=== PATIENT | female | born 1960 | race Caucasian/White ===

== ENCOUNTER → 2018-04-10 16:49 | Outpatient (CLI) | payer OTHER, SELFPAY ==
[2018-04-10 18:18] LABS: AST(SGOT) 23 U/L (15-37); Alanine Aminotransfer ALT/SGPT 27 U/L (13-56); Anion Gap 11 (5-15); BUN 19 mg/dL (7-18); BUN/Creat Ratio 13.5 RATIO (10-20); Calcium,Total 8.9 mg/dL (8.5-10.1); Chloride 107 mmol/L (98-107); Cholesterol 140 mg/dL (200); Creatinine, Serum 1.41 mg/dL (0.55-1.02); EST Glomerular Filtration Rate 41 mL/min (>60); Est Glom Filt Rate - Afr Amer 49 mL/min (>60); Glucose 125 mg/dL (74-106); High Density Lipoprotein 52 mg/dL; Potassium 3.7 mmol/L (3.5-5.1); Sodium Level 144 mmol/L (136-145); Thyroid Stim Hormone (TSH) 3.23 uIU/mL (0.358-3.74); Triglycerides 216 mg/dL; Very Low Density Lipoprotein 43 mg/dL (5-40)
== END ==
PROVIDERS: Family Provider Family Medicine; PCP Family Medicine; Visit Provider Family Medicine
DX: I10 Essential (primary) hypertension (principal); E78.00 Pure hypercholesterolemia, unspecified; R63.5 Abnormal weight gain
CPT/HCPCS: 36415; 80048; 80061; 84443; 84450; 84460

== ENCOUNTER → 2018-05-01 12:56 | Outpatient (CLI) | payer OTHER, SELFPAY ==
[2018-05-01 14:36] LABS: Anion Gap 9 (5-15); BUN 23 mg/dL (7-18); BUN/Creat Ratio 15.5 RATIO (10-20); Calcium,Total 9.1 mg/dL (8.5-10.1); Chloride 107 mmol/L (98-107); Creatinine, Serum 1.48 mg/dL (0.55-1.02); EST Glomerular Filtration Rate 39 mL/min (>60); Est Glom Filt Rate - Afr Amer 47 mL/min (>60); Glucose 70 mg/dL (74-106); Potassium 4.6 mmol/L (3.5-5.1); Sodium Level 143 mmol/L (136-145)
[2018-05-01 14:37] LABS: Hemoglobin A1c 5.9 % (4.2-6.3)
== END ==
PROVIDERS: Family Provider Family Medicine; PCP Family Medicine; Referring Provider Family Medicine; Visit Provider Family Medicine
DX: I10 Essential (primary) hypertension (principal); R73.09 Other abnormal glucose
CPT/HCPCS: 36415; 80048; 83036

== ENCOUNTER → 2018-07-09 16:30 | Outpatient (CLI) | payer OTHER, SELFPAY ==
--- NOTE | 2018-07-09 16:32 | US_ITS ---
STUDY: RENAL ULTRASOUND - COMPLETE REASON FOR EXAM: Female, 57 years old. Chronic kidney disease TECHNIQUE: Ultrasound evaluation of the kidneys was performed with real-time and static osborn-scale imaging. COMPARISON: None. FINDINGS: RIGHT KIDNEY: Normal location of the right kidney, which is normal in size. The right kidney measures 10.4 x 4.5 x 4.4 cm. There is a normal cortex of the right kidney. The renal cortex measures 1.7 cm. There is no right renal mass or cyst. There are no right renal calculi. There is no right hydronephrosis. DISTAL RIGHT URETER: There is non-visualization of the distal right ureter. There is no demonstrated right ureterovesical junction calculus. There is no demonstrated right ureteral jet. LEFT KIDNEY: Normal location of the left kidney, which is normal in size. The left kidney measures 11.0 x 5.1 x 4.7 cm. There is a normal cortex of the left kidney. The renal cortex measures cm. There is no left renal mass or cyst. There are no left renal calculi. There is no left hydronephrosis. DISTAL LEFT URETER: There is non-visualization of the distal left ureter. There is no demonstrated left ureterovesical junction calculus. There is no demonstrated left ureteral jet. BLADDER: The distended urinary bladder has a volume of 7 ml. There is a normal wall thickness of the distended urinary bladder. There is no demonstrated mass within the urinary bladder. There are no demonstrated bladder calculi. US/Kidney and Bladder IMPRESSION: Normal ultrasound of the kidneys and urinary bladder. Electronically Signed: David Kaur MD at 2:26 EST Tel , Service support ,
== END ==
PROVIDERS: Family Provider Family Medicine; PCP Family Medicine; Referring Provider Internal Medicine Nephrology; Visit Provider Internal Medicine Nephrology
DX: N18.3 Chronic kidney disease, stage 3 (moderate) (principal)
CPT/HCPCS: 76770

== ENCOUNTER → 2019-04-11 14:05 | Outpatient (CLI) | payer OTHER, SELFPAY ==
[2019-04-11 15:57] LABS: AST(SGOT) 18 U/L (15-37); Alanine Aminotransfer ALT/SGPT 28 U/L (13-56); Albumin, Serum 3.9 g/dL (3.2-5.0); Anion Gap 9 (5-15); BUN 17 mg/dL (7-18); BUN/Creat Ratio 14.4 RATIO (10-20); Calcium,Total 8.8 mg/dL (8.5-10.1); Chloride 105 mmol/L (98-107); Cholesterol 179 mg/dL (200); Creatinine, Serum 1.18 mg/dL (0.55-1.02); EST Glomerular Filtration Rate 50 mL/min (>60); Est Glom Filt Rate - Afr Amer 60 mL/min (>60); Glucose 77 mg/dL (74-106); High Density Lipoprotein 57 mg/dL; Phosphorus 2.9 mg/dL (2.5-4.9); Potassium 3.9 mmol/L (3.5-5.1); Sodium Level 142 mmol/L (136-145); Triglycerides 165 mg/dL; Very Low Density Lipoprotein 33 mg/dL (5-40)
== END ==
PROVIDERS: Family Provider Family Medicine; PCP Family Medicine; Referring Provider Internal Medicine Nephrology; Visit Provider Internal Medicine Nephrology
DX: I12.9 Hypertensive chronic kidney disease with stage 1 through stage 4 chronic kidney disease, or unspecified chronic kidney disease (principal); N18.3 Chronic kidney disease, stage 3 (moderate); E78.00 Pure hypercholesterolemia, unspecified
CPT/HCPCS: 36415; 80048; 80061; 82040; 84100; 84450; 84460

== ENCOUNTER → 2019-04-17 10:02 | Outpatient (CLI) | payer OTHER, SELFPAY ==
--- NOTE | 2019-04-17 10:04 | BI_ITS ---
MAMMOGRAPHY - BILATERAL SCREENING REASON FOR EXAM: Female, 58 years old. Routine annual screening examination. PERTINENT HISTORY: Non-contributory. TECHNIQUE: Digital bilateral breast bradly (3D mammographic acquisition) in the CC and MLO projections. 2-D mediolateral oblique (MLO) and craniocaudad (CC) views of both breasts were obtained. CAD: Full Field Digital Mammography with Computer Added Detection was performed. COMPARISON: Comparison is made with prior outside examination dated February 15, 2007. FINDINGS: Breast Composition: The breasts are almost entirely fatty. There are no dominant masses or suspicious calcifications. No other significant abnormalities are identified. There has been no significant change since the prior study. BI/SCREEN MAMM (CAD) W/BRADLY BILAT IMPRESSION: Stable bilateral screening mammogram. Yearly follow-up mammogram recommended. (A) ASSESSMENT CATEGORY: BIRADS Category 1: Negative. A letter regarding these results will be sent to the patient by the facility within 30 days. Approximately 10% of breast cancers are not detected by mammography. A normal mammogram should not delay biopsy of a clinically suspicious abnormality. [id number] Electronically Signed: Ronaldo Mccarthy, at 12:36 EST , Service support ,
== END ==
PROVIDERS: Family Provider Family Medicine; PCP Family Medicine; Referring Provider Family Medicine; Visit Provider Family Medicine
DX: Z12.31 Encounter for screening mammogram for malignant neoplasm of breast (principal)
CPT/HCPCS: 77063; 77067

== ENCOUNTER → 2019-08-08 14:09 | Outpatient (CLI) | payer OTHER, SELFPAY ==
[2019-08-08 14:04] VITALS: BMI 36.0
--- NOTE | 2019-08-08 14:10 | RAD_ITS ---
STUDY: X-RAY - RIGHT SHOULDER REASON FOR EXAM: Chronic pain. TECHNIQUE: 3 view(s) of the shoulder. COMPARISON: None. FINDINGS: There is mild joint space narrowing of the glenohumeral articulation. There is resection of the distal clavicle. Normal acromion. Normal humeral head and visualized proximal humerus. The soft tissue structures are unremarkable. Normal visualized pulmonary apex. RAD/Shoulder min 2 Views IMPRESSION: Mild glenohumeral arthrosis. Electronically Signed: Michael Jennings MD at 15:23 EST Tel , Service support ,
== END ==
PROVIDERS: PCP Family Medicine; Referring Provider Orthopaedic Surgery; Visit Provider Orthopaedic Surgery
DX: M25.511 Pain in right shoulder (principal)
CPT/HCPCS: 73030

== ENCOUNTER → 2020-04-13 11:25 | Outpatient (CLI) | payer OTHER, SELFPAY ==
[2019-08-08 14:28] VITALS: BMI 37.8
[2020-04-13 15:54] LABS: BUN 19 mg/dL (7-18); BUN/Creat Ratio 15.7 RATIO (10-20); Chloride 103 mmol/L (98-107); Creatinine, Serum 1.21 mg/dL (0.55-1.02); EST Glomerular Filtration Rate 48 mL/min (>60); Est Glom Filt Rate - Afr Amer 58 mL/min (>60); Glucose 88 mg/dL (74-106); Phosphorus 3.4 mg/dL (2.5-4.9); Sodium Level 140 mmol/L (136-145)
== END ==
PROVIDERS: PCP Family Medicine; Referring Provider Internal Medicine Nephrology; Visit Provider Internal Medicine Nephrology
DX: N18.30 Chronic kidney disease, stage 3 unspecified (principal)
CPT/HCPCS: 36415; 80069

== ENCOUNTER → 2020-04-20 13:55 | Outpatient (CLI) | payer OTHER, SELFPAY ==
[2019-08-08 14:28] VITALS: BMI 37.8
[2020-04-20 16:11] LABS: AST(SGOT) 13 U/L (15-37); Alanine Aminotransfer ALT/SGPT 24 U/L (13-56); Cholesterol 177 mg/dL (200); High Density Lipoprotein 58 mg/dL; Triglycerides 187 mg/dL; Very Low Density Lipoprotein 37 mg/dL (5-40)
== END ==
PROVIDERS: PCP Family Medicine; Referring Provider Family Medicine; Visit Provider Family Medicine
DX: E78.00 Pure hypercholesterolemia, unspecified (principal)
CPT/HCPCS: 36415; 80061; 84450; 84460

== ENCOUNTER → 2020-05-01 15:52 | Outpatient (CLI) | payer OTHER, SELFPAY ==
[2019-08-08 14:28] VITALS: BMI 37.8
== END ==
PROVIDERS: PCP Family Medicine; Visit Provider Family Medicine
DX: Z20.828 Contact with and (suspected) exposure to other viral communicable diseases (principal)
CPT/HCPCS: 87635; U0003

== ENCOUNTER 2020-08-25 11:14 | Outpatient (RCR) | payer OTHER, SELFPAY ==
[2020-08-25] MEDS: COVID-19 VACC, MRNA(PFIZER)/PF 30 MCG/0.3 ML SYRINGE IM (11:00)
[2020-09-15] MEDS: COVID-19 VACC, MRNA(PFIZER)/PF 30 MCG/0.3 ML SYRINGE IM (10:51)
== END 2020-11-17 23:59 ==
LOC: IMMUN 11:14
PROVIDERS: PCP Family Medicine; Visit Provider Family Medicine
DX: Z23 Encounter for immunization (principal)
CPT/HCPCS: 0001A; 0002A; 91300

== ENCOUNTER → 2020-12-01 12:36 | Outpatient (CLI) | payer OTHER, SELFPAY ==
--- NOTE | 2020-12-01 12:38 | BI_ITS ---
MAMMOGRAPHY - BILATERAL SCREENING 3-D TOMOSYNTHESIS REASON FOR EXAM: Female, 59 years old. Annual screening mammogram. PERTINENT HISTORY: No significant family history. TECHNIQUE: 2-D mammograms and 3-D Tomosynthesis of the breast (s) were performed. CAD was performed. COMPARISON: 04/17/2019 FINDINGS: The breast composition is almost entirely fat. Scattered benign calcifications are seen. No dense spiculated masses or suspicious microcalcifications are identified. No architectural distortion is identified. There is no skin thickening or retraction. There has been no significant change since the prior study. BI/SCRN MAMM (CAD)W/BRADLY BILAT IMPRESSION: No mammographic signs of malignancy. Routine yearly mammograms recommended. ASSESSMENT CATEGORY: BIRADS Category 2: Benign. A letter regarding these results will be sent to the patient by the facility within 30 days. FOLLOW UP RECOMMENDATION: Yearly follow up mammogram recommended. (A) Approximately 10% of breast cancers are not detected by mammography. A normal mammogram should not delay biopsy of a clinically suspicious abnormality. Electronically Signed: Julio Viramontes MD at 14:53 EDT , Service support ,
--- NOTE | 2020-12-01 13:05 | BD_ITS ---
STUDY: DUAL ENERGY X-RAY ABSORPTIOMETRY / DXA REASON FOR EXAM: Female, 59 years old. [id number]. The patient is postmenopausal. TECHNIQUE: Bone Mineral Density (BMD) measurements of lumbar spine and bilateral hips were obtained. COMPARISON: None. FINDINGS: Lumbar Spine (L1-L4): g/cm2 (1.391) / T-score (1.9) / Z-score (3.1) Findings are suggestive of normal bone density with a low fracture risk. Left Femur Total: g/cm2 (1.074) / T-score (0.5) / Z-score (1.5) Left Femoral Neck: g/cm2 (0.885) / T-score (-1.1) / Z-score (0.2) Right Femur Total: g/cm2 (0.894) / T-score (-0.9) / Z-score (0.1) Right Femoral Neck: g/cm2 (0.841) / T-score (-1.4) / Z-score (-0.1) BD/Dexa Bone Density Study IMPRESSION: The patient is considered osteopenic as outlined below according to World [employer]rin[employer] Organization (WHO) criteria with a low fracture risk. Reference Information: The T-score is the number of standard deviations above or below the standard which is normal for young adults at their peak bone mineral density. The World Health Organization (WHO) interprets the T-scores as follows: Above -1 Normal bone density Between -1 and -2.5 Osteopenia Equal to / or below -2.5 Osteoporosis As a practical clinical guideline, osteopenia may be graded as follows: Mild -1 through -1.5 Moderate -1.6 through -2.0 Severe -2.1 through -2.4 The Z-score is the number of standard deviations above or below age-matched controls. A Z-score of less than -1.5 would be considered abnormal. References: 1. NIH Osteoporosis and Related Bone Diseases www osteo.org 2. International Society for Clinical Densitometry www iscd.org 3. National Osteoporosis Foundation www nof.org Electronically Signed: Ronaldo Mccarthy MD at 8:28 EDT , Service support ,
== END ==
PROVIDERS: PCP Family Medicine; Referring Provider Family Medicine; Visit Provider Family Medicine
DX: Z78.0 Asymptomatic menopausal state (principal); Z12.31 Encounter for screening mammogram for malignant neoplasm of breast
CPT/HCPCS: 77063; 77067; 77080

== ENCOUNTER 2021-05-03 10:39 | Outpatient (RCR) | payer BC, OTHER, SELFPAY ==
--- NOTE | 2021-05-03 12:08 | HP.PTEVAL_ITS ---
Patient's Visit Information HEATHER DAVIS is a 60 year old F referred to Physical Therapy by Dr. Luda Erickson MD with a diagnosis of lumbar strain. Date of Evaluation: 05/03/21 Physical Therapist: Otilia Rapp - Visit Plan Frequency: 1x/Week Duration: 4 Weeks Plan: 1. Gave pt HEP with low back stretches and bridging exercise. Begin POC with stretching/strengthening for low back and progressive core stabilazation program. Pt to try TENS unit at work to see if that helps her pain during her shift. Consider pool therapy if not progressing. 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 Began job the end of March. She reports that she has been having problems with her back before that but since starting this new job the pain has gotten significantly worse as her job is busy and fast paced. Pt works 12 hr night shifts. Received a cortisone shot 2 wks ago that worked for about 2 days. Pt has not tried ice or heat. Pt reports she tried a back brace but it did not help much. Sitting does not cause her pain, but the transition to stand up is painful and difficult. Pt reports radiating pain down the left leg occasionally and a sharp pain in the lower back with too quickly of movements. Pt willing to try physical therapy but only has time for one day a week, though script mentioned 2x/wk. Encouraged pt to give it a try, but that she must be compliant with HEP at home to notice a difference. PAIN: 0/10, currently in sitting. Walking and activity increases the pain to up to 10/10. - Pain low back Pain Intensity (Out of 10): 0 Pain Intensity Range: 0, 10 - Objective ROM: trunk flexion (fingertips 2 inches from ankles), minimal extension (painful), minimal L sidebend with increased pain, R sidebend fingertips ~3 inches down lateral thigh, L rotation more painful than R (minimal both directions). LE ROM: WFL, lacking about 15 degrees bilaterally with SLR. MMT: B hip flexion 5/5 (slight back pain with resistance on left), B abd 5/5, B extension, adduction 4/5, core strength fair. PALPATION: tenderness to B paraspinals in lumbar area. GAIT: no abnormalities noted; however pt reports that with prolonged increased activity, gait causes back pain. - Balance/Special Test Scores Oswestry Low Back Score: 21 - Goals Goal 1:: Pt to be I with HEP Goal Time Frame: 2-4 Weeks Goal 2:: Pt to report decreased pain during work shift <3/10 allowing for increased participation. Goal Time Frame: 4-6 Weeks Goal 3:: Pt to decrease MARGARITA disability percentage to <10%. Goal Time Frame: 4-6 Weeks - Rehabilitation Potential Physical Therapy Diagnosis: Pt presents with s/s consistent with lumbar strain resulting in back pain leading to difficulty completing work tasks and other ADLs. Rehabilitation Potential: Good - Anticipated Interventions Patient/Client Instruction: Educate patient on: Condition, Plan of Care, Benefits of Fitness Program Therapeutic Exercise to Include: Strength training, Body mechanics, Postural t raining, Dynamic Lumbar Stabilization For the Purpose of:: To improve ability to perform ADL's, To increase flexibility/ROM Manual Therapy Techniques to Include: Soft tissue mobilization TENS: Yes IF ES: Yes Cryotherapy (ice pack, ice massage): Yes Ultrasound (thermal/non thermal): Yes For the Purpose of:: To decrease pain Thank you for the opportunity to evaluate your patient. For Medicare and Medicare HMO plans, please review the plan of care and approve it. It will need to be FAXED BACK to us at [phone] for Medicare purposes. For Medicare only, by signing this I certify the plan of care. Please let me know if there are questions or concerns regarding this plan of care. Physician Signature: Date:
--- NOTE | 2021-06-28 09:39 | HP.PT.NRP ---
HEATHER DAVIS was seen in my office for initial evaluation on 05/03/21. The following Plan of Care was established for this patient: Initial Frequency: 1x/Week Initial Duration: 4 Weeks Patient/Client Instruction: Educate patient on: Condition, Plan of Care, Benefits of Fitness Program Therapeutic Exercise to Include: Strength training, Body mechanics, Postural training, Dynamic Lumbar Stabilization For the Purpose of:: To improve ability to perform ADL's, To increase flexibility/ROM Manual Therapy Techniques to Include: Soft tissue mobilization TENS: Yes IF ES: Yes Cryotherapy (ice pack, ice massage): Yes Ultrasound (thermal/non thermal): Yes For the Purpose of:: To decrease pain This patient was last seen in our office 05/03/21. Pertinent comments regarding their Physical therapy will appear below: Pt seen one visit of HEP instruct. Was to f/u weekly for progression but did not schedule or attend any further visits. at this point, it has been nearly two months and I will discontinue due to nonattendance. At this point I will be discontinuing this patient from physical therapy. I would be happy to see this patient again in the future if found appropriate by the physician. Thank you! Maykel Dietrich, DPT, OCS, CSCS Balance/Gait/Functional tests - Balance/Special Test Scores Oswestry Low Back Score: 21
== END 2021-05-03 19:00 | disposition home or self-care (01) ==
LOC: PT 10:39
PROVIDERS: PCP Family Medicine; Referring Provider Family Medicine; Visit Provider Family Medicine
DX: S39.012D Strain of muscle, fascia and tendon of lower back, subsequent encounter (principal)
CPT/HCPCS: 97161

== ENCOUNTER 2021-09-27 14:10 | Outpatient (CLI) | payer BC, OTHER, SELFPAY ==
[2021-09-27 18:00] LABS: AST(SGOT) 20 U/L (15-37); Alanine Aminotransfer ALT/SGPT 30 U/L (13-56); Anion Gap 6 (5-15); BUN 13 mg/dL (7-18); BUN/Creat Ratio 11.3 RATIO (10-20); Chloride 105 mmol/L (98-107); Cholesterol 190 mg/dL (200); Creatinine, Serum 1.15 mg/dL (0.55-1.02); EST Glomerular Filtration Rate 51 mL/min (>60); Est Glom Filt Rate - Afr Amer 62 mL/min (>60); Glucose 102 mg/dL (74-106); High Density Lipoprotein 57 mg/dL; Potassium 4.1 mmol/L (3.5-5.1); Sodium Level 141 mmol/L (136-145); Triglycerides 313 mg/dL; Very Low Density Lipoprotein 63 mg/dL (5-40)
== END 2021-09-27 23:59 | disposition home or self-care (01) ==
LOC: MFPLAB 14:12
PROVIDERS: PCP Family Medicine; Visit Provider Family Medicine
DX: E78.00 Pure hypercholesterolemia, unspecified (principal); I10 Essential (primary) hypertension
CPT/HCPCS: 36415; 80048; 80061; 84450; 84460

== ENCOUNTER → 2022-07-05 | Outpatient (CLI) | payer BC, SELFPAY ==
[2022-07-05 18:55] LABS: AST(SGOT) 15 U/L (15-37); Alanine Aminotransfer ALT/SGPT 22 U/L (13-56); Anion Gap 6 (5-15); BUN 11 mg/dL (7-18); BUN/Creat Ratio 10.8 RATIO (10-20); Calcium,Total 8.7 mg/dL (8.5-10.1); Chloride 104 mmol/L (98-107); Cholesterol 176 mg/dL (200); Creatinine, Serum 1.02 mg/dL (0.55-1.02); EST Glomerular Filtration Rate 58 mL/min (>60); Est Glom Filt Rate - Afr Amer 71 mL/min (>60); Glucose 120 mg/dL (74-106); High Density Lipoprotein 59 mg/dL; Potassium 3.8 mmol/L (3.5-5.1); Sodium Level 139 mmol/L (136-145); Triglycerides 211 mg/dL; Very Low Density Lipoprotein 42 mg/dL (5-40)
== END | disposition home or self-care (01) ==
LOC: MFPLAB 15:58
PROVIDERS: PCP Family Medicine; Referring Provider Family Medicine; Visit Provider Family Medicine
DX: I10 Essential (primary) hypertension (principal); E78.00 Pure hypercholesterolemia, unspecified
CPT/HCPCS: 36415; 80048; 80061; 84450; 84460

== ENCOUNTER 2023-01-03 15:39 | Outpatient (CLI) | payer OTHER, SELFPAY ==
[2023-01-03 18:00] LABS: Absolute Lymphocyte Count 1.69 X10^3/uL (0.83-4.51); Absolute Neutrophil Count 2.9 X10^3/uL (2.0-7.7); Basophil# 0.04 X10^3/uL; Basophil% 0.7 % (0-1); Eosinophil# 0.14 X10^3/uL; Eosinophils% 2.5 % (0-5); Hematocrit 39.6 % (37-47); Hemoglobin 12.2 g/dL (12.0-15.0); Lymphocyte # 1.69 X10^3/ul (0.83-4.51); Lymphocyte % 30.7 % (19-41); Mean Corp Hgb Conc 30.8 g/dL (32-36); Mean Corpuscular Hgb 30.2 pg (27.0-32.0); Mean Platelet Vol. 12.4 fl (6.2-12.0); Monocyte% 10.9 % (0-10); NRBC Flagged by Analyzer 0 % (0-5); Neutrophil # 2.94 X10^3/uL (2.7-7.7); Neutrophil % 53.6 % (47-70); Platelet Count 210 K/mm3 (150-450); RBC Distribution Width CV 13.5 % (11.6-14.6); RBC Distribution Width SD 49.2 fl (35.1-43.9); Red Blood Count 4.04 M/mm3 (4.2-5.4); White Blood Count 5.5 K/mm3 (4.4-11.0)
[2023-01-03 18:38] LABS: ALB/GLOB Ratio 1.2 RATIO (0.9-2.4); AST(SGOT) 21 U/L (15-37); Alanine Aminotransfer ALT/SGPT 27 U/L (13-56); Albumin, Serum 3.9 g/dL (3.2-5.0); Alkaline Phosphatase 72 U/L (45-117); Anion Gap 4 (5-15); BUN 18 mg/dL (7-18); BUN/Creat Ratio 15.4 RATIO (10-20); Calcium,Total 9.4 mg/dL (8.5-10.1); Chloride 108 mmol/L (98-107); Cholesterol 168 mg/dL (200); Creatinine, Serum 1.17 mg/dL (0.55-1.02); EST Glomerular Filtration Rate 50 mL/min (>60); Est Glom Filt Rate - Afr Amer 60 mL/min (>60); Globulin 3.2 g/dL (2.2-4.2); Glucose 81 mg/dL (74-106); High Density Lipoprotein 63 mg/dL; Potassium 4.3 mmol/L (3.5-5.1); Protein, Total 7.1 g/dL (6.4-8.2); Sodium Level 141 mmol/L (136-145); Triglycerides 221 mg/dL; Very Low Density Lipoprotein 44 mg/dL (5-40)
== END 2023-01-03 23:59 | disposition home or self-care (01) ==
LOC: MFPLAB 15:40
PROVIDERS: PCP Family Medicine; Visit Provider Family Medicine
DX: Z00.00 Encounter for general adult medical examination without abnormal findings (principal); N18.30 Chronic kidney disease, stage 3 unspecified
CPT/HCPCS: 36415; 80053; 80061; 85025

== ENCOUNTER → 2024-01-08 | Outpatient (CLI) | payer SELFPAY ==
[2024-01-08 18:01] LABS: Anion Gap 5 (5-15); BUN 16 mg/dL (7-18); BUN/Creat Ratio 14.4 RATIO (10-20); Calcium,Total 9.4 mg/dL (8.5-10.1); Chloride 107 mmol/L (98-107); Cholesterol 166 mg/dL (200); Creatinine, Serum 1.11 mg/dL (0.55-1.02); EST Glomerular Filtration Rate 53 mL/min (>60); Est Glom Filt Rate - Afr Amer 64 mL/min (>60); Glucose 96 mg/dL (74-106); High Density Lipoprotein 65 mg/dL; Potassium 3.9 mmol/L (3.5-5.1); Sodium Level 137 mmol/L (136-145); Triglycerides 149 mg/dL; Very Low Density Lipoprotein 30 mg/dL (5-40)
== END | disposition home or self-care (01) ==
PROVIDERS: PCP Family Medicine; Visit Provider Family Medicine
DX: I10 Essential (primary) hypertension (principal); E78.00 Pure hypercholesterolemia, unspecified
CPT/HCPCS: 36415; 80048; 80061

== ENCOUNTER → 2024-01-12 | Outpatient (CLI) | payer SELFPAY ==
--- NOTE | 2024-01-12 12:28 | BI_ITS ---
MAMMOGRAPHY - BILATERAL SCREENING REASON FOR EXAM: Female, 63 years old. Routine annual screening examination. PERTINENT HISTORY: Non-contributory. TECHNIQUE: Digital bilateral breast bradly (3D mammographic acquisition) in the CC and MLO projections. 2-D mediolateral oblique (MLO) and craniocaudad (CC) views of both breasts were obtained. CAD: Full Field Digital Mammography with Computer Added Detection was performed. COMPARISON: Comparison is made with prior study dated December 01, 2020 and April 17, 2019. FINDINGS: Breast Composition: The breasts are almost entirely fatty. There are no dominant masses or suspicious calcifications. No other significant abnormalities are identified. There has been no significant change since the prior study. BI/SCRN MAMM (CAD)W/BRADLY BILAT IMPRESSION: Stable bilateral screening mammogram. Yearly follow-up mammogram recommended. (A) ASSESSMENT CATEGORY: BIRADS Category 1: Negative. A letter regarding these results will be sent to the patient by the facility within 30 days. Approximately 10% of breast cancers are not detected by mammography. A normal mammogram should not delay biopsy of a clinically suspicious abnormality. [id number] Electronically Signed: Ronaldo Mccarthy MD at 12:56 EDT ,
== END | disposition home or self-care (01) ==
PROVIDERS: PCP Family Medicine; Referring Provider Family Medicine; Visit Provider Family Medicine
DX: Z12.31 Encounter for screening mammogram for malignant neoplasm of breast (principal)
CPT/HCPCS: 77063; 77067

== ENCOUNTER → 2025-04-24 | Outpatient (CLI) | payer MEDICARE, OTHER, SELFPAY ==
[2025-04-24 15:08] LABS: Mucous, Urine 0 SEEN /hpf (<or=2+); Red Blood Cells-Urine 0 SEEN /hpf (0-5)
[2025-04-24 18:03] LABS: Color, Urine Yellow (Yellow); Glucose, Dipstick Normal (Normal); Hematocrit 40.6 % (37-47); Hemoglobin 13.4 g/dL (12.0-15.0); Immature Granulocytes Count 0.010 X10^3/uL (0.0-0.0); Ketone-Dipstick Negative (Negative); Leukocyte Esterase-Dipstick Negative /ul (Negative); Mean Corp Hgb Conc 33.0 g/dL (32-36); Mean Corpuscular Volume 97.6 fL (81-99); Mean Platelet Vol. 11.7 fl (6.2-12.0); NRBC Flagged by Analyzer 0 % (0-5); Nitrite-Dipstick Negative (Negative); Occult Blood-Urine Negative /ul (Negative); Platelet Count 251 K/mm3 (150-450); Protein-Dipstick 30 mg/dl (Negative); RBC Distribution Width CV 12.2 % (11.6-14.6); RBC Distribution Width SD 44.0 fl (35.1-43.9); Red Blood Count 4.16 M/mm3 (4.2-5.4); Specific Gravity, Urine 1.015 (1.002-1.030); Urine Bilirubin Dipstick Negative (Negative); White Blood Count 6.2 K/mm3 (4.4-11.0)
[2025-04-24 18:12] LABS: Squamous Epithelial Cells - UA 0-5 SEEN /hpf (5-10)
[2025-04-24 18:22] LABS: Creatinine, Urine (random) 89.70 mg/dL (28.00-217.00); Protein, Urine (Random) 8.8 mg/dL (0.0-12.0); Protein:Creat Ratio 98 mg/g CRE (0-200)
[2025-04-24 18:32] LABS: PTHIN 47 pg/mL (11-61)
[2025-04-24 18:42] LABS: AST(SGOT) 23 U/L (<=31); Alanine Aminotransfer ALT/SGPT 12 U/L (<=34); Albumin, Serum 4.0 g/dL (3.4-4.8); Alkaline Phosphatase 63 U/L (35-104); Anion Gap 10 (5-15); BUN 14 mg/dL (4-19); BUN/Creat Ratio 15.3 RATIO (10-20); Calcium,Total 9.7 mg/dL (7.6-11.0); Carbon Dioxide 26.3 mmol/L (21.0-32.0); Chloride 106 mmol/L (98-108); Cholesterol 229 mg/dL (<=200); Globulin 2.4 g/dL (2.2-4.2); Glucose 144 mg/dL (70-99); Low Density Lipoprotein Calc. 128 mg/dL; Magnesium 1.9 mg/dL (1.5-2.2); Potassium 3.5 mmol/L (3.3-5.1); Triglycerides 196 mg/dL; Very Low Density Lipoprotein 39 mg/dL (5-40); cholesterol:hdl ratio screen 3.43
== END | disposition home or self-care (01) ==
LOC: MFPLAB 15:06
PROVIDERS: PCP Family Medicine; Visit Provider Family Medicine
DX: R73.09 Other abnormal glucose (principal); N18.30 Chronic kidney disease, stage 3 unspecified; I12.9 Hypertensive chronic kidney disease with stage 1 through stage 4 chronic kidney disease, or unspecified chronic kidney disease
CPT/HCPCS: 80053; 80061; 81001; 82570; 83036; 83735; 83970; 84100; 84156; 84443; 85025

== ENCOUNTER → 2025-05-17 | Outpatient (CLI) | payer MEDICARE, SELFPAY ==
--- NOTE | 2025-05-17 08:45 | CT_ITS ---
PROCEDURE: LOW DOSE CT LUNG SCREENING 05/17/2025 REASON FOR EXAM: SMOKER TECHNIQUE: Procedure Code: [id number] Modality: CT Procedure: LOW DOSE CT LUNG SCREENING Coronal and Sagittal reconstruction series were provided. One or more dose reduction techniques were used (e.g., Automated exposure control, adjustment of the mA and/or kV according to patient size, use of iterative reconstruction technique). REFERENCE LINK: [employer] Lung-RADS COMPARISON: None available. FINDINGS: PULMONARY NODULES: (Only nodules >3mm are reported) Pulmonary Nodules: None. Hardware:None. Lymph Nodes:No enlarged mediastinal, hilar, or axillary lymph nodes. Heart and Vasculature:Nonenlarged. No pericardial effusion Coronary Artery Calcifications: Minimal. Lungs and Airways: Lungs are clear. Airways are patent. Pleura:No pleural effusion or pneumothorax. Upper Abdomen:Grossly unremarkable. Bones:Degenerative changes of the thoracic spine. No acute fractures. CT/Low Dose CT Lung Screening IMPRESSION: No pulmonary nodules identified. Lung-RADS Category: 1 NEGATIVE. RECOMMEND 12-MONTH SCREENING LDCT. Reading [facility]
--- OUTSIDE RECORDS SUMMARY | 2025-05-17 08:45 | XMS RPT_ITS | CCD ---
Author Organization [facility] Care Team Providers Care Shrimper Name Role Phone GEORGINA SÁNCHEZ, DR SMITH Primary Care Physician [phone] GEORGINA SÁNCHEZ, DR SMITH Primary Care Unavailable [facility] Attending Unavailable Ron WALLACE, Kelly Hernandez Attending Unavail able Luda Erickson Referring Unavailable Luda Erickson Primary Care Unavailable Luda Erickson Primary Care Unavailable Luda Erickson Referring Unavailable Luda Erickson S Attending Unavailable Luda Erickson Primary Care Unavailable Luda Erickson Attending Unavailable Allergies Allergy Classification Reported Allergen(s) Allergy Type Date of Onset Reaction(s) Facility (4 sources) Morphine; Translations: [morphine] Drug Allergy 08-08-2019 Itching [facility] (4 sources) Penicillins; Translations: [Penicillins] Allergy to substance 08-08-2019 Unknown [facility] (1 source) Penicillin; Translations: [penicillin] Drug Allergy [facility] (1 source) Morphine Drug Allergy 09-17-2023 [facility] Repository Medications Current Medications Medication Drug Class(es) Dates Sig (Normalized) Sig (Original) atenolol 100 mg oral tablet (3 sources) beta-Adrenergic Kevin Start: 09-17-2014 take 100 mg by mouth once daily Atenolol Active 100 MG PO DAILY September 17, 2014 12:00am atorvastatin 40 mg oral tablet (3 sources) HMG-CoA Reductase Inhibitor Start: 09-17-2014 take 40 mg by mouth at bedtime Atorvastatin Active 40 MG PO AT BEDTIME September 17, 2014 12:00am 12 hr buPROPion hydrochloride 150 mg extended release oral tablet (6 sources) Aminoketone Start: 06-25-2020 Bupropion Hcl Active MG PO June 25, 2020 1:00am Start: 09-17-2014 End: 08-08-2019 take 150 mg by mouth twice daily Bupropion Hcl Discontinued 150 MG PO TWICE A DAY September 17, 2014 12:00am August 08, 2019 3:05pm Btatamtp-Ipe-Gejr Fum-Folic Ac (3 sources) Start: 11-12-2015 Qmbjphuk-Orx-I leo Fum-Folic Ac Active 1 EACH PO DAILY November 12, 2015 8:30am Start: 11-12-2015 Uedknzeg-Xnp-B leo Fum-Folic Ac Active 1 EACH PO DAILY November 12, 2015 12:00am Start: 11-12-2015 Biluxexx-Khn-L leo Fum-Folic Ac Active 1 EACH PO DAILY November 11, 2015 11:00pm omeprazole 20 mg delayed release oral capsule (3 sources) Proton Pump Inhibitor Start: 09-17-2014 take 20 mg by mouth once daily Omeprazole Active 20 MG PO DAILY September 17, 2014 12:00am promethazine hydrochloride 25 mg oral tablet (3 sources) Phenothiazine Start: 11-11-2015 take 25 mg by mouth every four hours as needed Promethazine Active 25 MG PO EVERY 4 HOURS NEEDED November 11, 2015 12:00am sertraline 100 mg oral tablet (3 sources) Serotonin Reuptake Inhibitor Start: 09-17-2014 take 150 mg by mouth once daily Sertraline Active 150 MG PO DAILY September 17, 2014 12:00am Completed/Discontinued Medications Medication Drug Class(es) Dates Sig (Normalized) Sig (Original) acetaminophen 325 mg / oxyCODONE hydrochloride 5 mg oral tablet (6 sources) Opioid Agonist Start: 6 End: 0 take 1 tablet by mouth every four hours as needed Oxycodone-Acetaminoph en Discontinued 1 - 2 TABLET PO EVERY 4 HOURS NEEDED November 12, 2015 12:00am November 12, 2015 8:32am docusate sodium 100 mg oral capsule (3 sources) Start: 6 End: 0 take 100 mg by mouth twice daily as needed Docusate Sodium Discontinued 100 MG PO TWICE DAILY NEEDED November 11, 2015 12:00am August 08, 2019 3:06pm 0.3 ml enoxaparin sodium 100 mg/ml prefilled syringe (3 sources) Low Molecular Weight Heparin Start: 6 End: 0 Enoxaparin Discontinued 30 MG SC DAILY@0600 November 11, 2015 12:00am August 08, 2019 3:06pm meloxicam 7.5 mg oral tablet (3 sources) Nonsteroidal Anti-inflammatory Drug Start: 0 End: 1 take 1 tablet by mouth once daily at mealtime Meloxicam (Mobic) 7.5 mg tablet Discontinued 7.5 MG PO DAILY August 08, 2019 1:00am June 25, 2020 12:11pm take one tab by mouth every day with food, stop all other nsaids methylPREDNISolone 4 mg oral tablet (3 sources) Corticosteroid Start: 6 End: 0 Methylprednisolone Discontinued 4 MG PO DIRECTED December 29, 2015 12:00am August 08, 2019 3:06pm triamcinolone acetonide 40 mg/ml injectable suspension (2 sources) Corticosteroid Start: 1 End: 1 Kenalog (triamcinolone acetonide) 40 mg/mL suspension for injection Discontinued 80 MG INTRAARTIC ONCE 2 June 25, 2020 12:07pm June 25, 2020 12:39pm Start: 08-08-2019 End: 08-08-2019 Kenalog (triamcinolone aceto nide) 40 mg/mL suspension for injection Discontinued 80 MG INTRAARTIC ONCE 2 August 08, 2019 2:58pm August 08, 2019 3:28pm Problems Active Problems Problem Classification Problem Date Documented Da te Episodic/Chronic Chronic obstructive pulmonary disease and bronchiectasis (1 source) Bronchitis; Translations: [Bronchitis, not specified as acute or chronic] Onset: 09-18-2023 Episodic Essential hypertension (1 source) Essential (primary) hypertension; Translations: [Essential (primary) hypertension] Onset: 01-30-2024 Chronic Other screening for suspected conditions (not mental disorders or infectious disease) (1 source) Encounter for screening mammogram for malignant neoplasm of breast; Translations: [Encounter for screening mammogram for malignant neoplasm of breast] Onset: 02-13-2024 Episodic Past or Other Problems Problem Classification Problem Date Documented Da te Episodic/Chronic Pneumonia (except that caused by tuberculosis or sexually transmitted disease) (1 source) Pneumonia, unspecified organism; Translations: [Pneumonia, unspecified organism] Onset: 10-04-2023 Episodic Results Test Name Value Interpretation Reference Range Facility SCRN MAMM (CAD)W/BRADLY BILATo n 01-12-2024 SCRN MAMM (CAD)W/BRADLY BILAT [facility] Imaging Services [address] [place] [address] SCRN MAMM (CAD)W/BRADLY BILAT MR#: [id number] Acct: [id number] Name: HEATHER DAVIS Rep #: [id number] : 1960 F 63 From: Ronaldo marcial MD PCP: Dr. Luda Erickson MD Status: [facility] Study: SCRN MAMM (CAD)W/BRADLY BILAT Date of Exam: 08/05 Exam# [id number] Ordering Dr: Luda Erickson MD [id number] MAMMOGRAPHY - BILATERAL SCREENING REASON FOR EXAM: Female, 63 years old. Routine annual screening examination. PERTINENT HISTORY: Non-contributory. TECHNIQUE: Digital bilateral breast bradly (3D mammographic acquisition) in the CC and MLO projections. 2-D mediolateral oblique (MLO) and craniocaudad (CC) views of both breasts were obtained. CAD: Full Field Digital Mammography with Computer Added Detection was performed. COMPARISON: Comparison is made with prior study dated December 01, 2020 and April 17, 2019. FINDINGS: Breast Composition: The breasts are almost entirely fatty. There are no dominant masses or suspicious calcifications. No other significant abnormalities are identified. There has been no significant change since the prior study. BI/SCRN MAMM (CAD)W/BRADLY BILAT IMPRESSION: Stable bilateral screening mammogram. Yearly follow-up mammogram recommended. (A) ASSESSMENT CATEGORY: BIRADS Category 1: Negative. A letter regarding these results will be sent to the patient by the facility within 30 days. Approximately 10% of breast cancers are not detected by mammography. A normal mammogram should not delay biopsy of a clinically suspicious abnormality. [id number] Electronically Signed: Ronaldo Mccarthy MD at 12:56 EDT , CC: Dr. Luda Erickson MD Brand Sales Consultant: Signed Normal [facility] Basic Metabolic Profile (BMP )on 01-08-2024 BUN/CRE 14.4 RATIO Normal 10-20 [facility] Comment on above: Performed By: #### L 500.4100, L500.2500 #### [facility] [address] [place], [address] CA,Total 9.4 mg/dL Normal 8.5-10.1 [facility] Comment on above: Performed By: #### L 500.4100, L500.2500 #### [facility] [address] [place], [address] Chloride [Moles/Vol] 107 mmol/L Normal 98-107 [facility] Comment on above: Performed By: #### L 500.4100, L500.2500 #### [facility] [address] [place], [address] CO2 [Moles/Vol] 25.0 mmol/L Normal 21.0-32.0 [facility] Comment on above: Performed By: #### L 500.4100, L500.2500 #### [facility] [address] [place], [address] Creatinine [Mass/Vol] 1.11 mg/dL High 0.55-1.02 [facility] Comment on above: Result Comment: The validity of the calculated GFR GFRAA in patients over 70 years has not been determined. Clinical correlation is essential. Performed By: #### L 500.4100, L500.2500 #### [facility] [address] [place], [address] EST GFR - AA 64 mL/min Normal >60 [facility] Comment on above: Result Comment: Afri can Cameroonian GFR Calc Performed By: #### L 500.4100, L500.2500 #### [facility] [address] [place], [address] GAP 5 Normal 5-15 [facility] Comment on above: Performed By: #### L 500.4100, L500.2500 #### [facility] [address] [place], [address] GFR/1.73 sq M.predicted among non-blacks MDRD (S/P/Bld) [Vol rate/Area] 53 mL/min/{1.73_m2} Low >60 [facility] Comment on above: Result Comment: Non- GFR Calc Performed By: #### L 500.4100, L500.2500 #### [facility] [address] [place], [address] Glucose [Mass/Vol] 96 mg/dL Normal 74-106 [facility] Comment on above: Performed By: #### L 500.4100, L500.2500 #### [facility] [address] [place], [address] Potassium [Moles/Vol] 3.9 mmol/L Normal 3.5-5.1 [facility] Comment on above: Performed By: #### L 500.4100, L500.2500 #### [facility] [address] [place], [address] Sodium [Moles/Vol] 137 mmol/L Normal 136-145 [facility] Comment on above: Performed By: #### L 500.4100, L500.2500 #### [facility] [address] [place], [address] Urea nitrogen [Mass/Vol] 16 mg/dL Normal 7-18 [facility] Comment on above: Performed By: #### L 500.4100, L500.2500 #### [facility] [address] [place], [address] Lipid Profileon 01-08-2024 Cholesterol [Mass/Vol] 166 mg/dL Normal 200 [facility] Comment on above: Result Comment: <200 mg/dL Desirable 200-240 mg/dL Borderline >240 mg/dL High Risk Performed By: #### L 500.4100, L500.2500 #### [facility] [address] [place], [address] Cholesterol in HDL [Mass/Vol] 65 mg/dL Normal [facility] Comment on above: Result Comment: The drugs N-Acetylcysteine and Metamizole may falsely depress this assay. Reference Range HDL <40 mg/dL Low HDL Cholesterol HDL >or= 60 mg/dL High HDL Cholesterol Performed By: #### L 500.4100, L500.2500 #### [facility] [address] [place], [address] Cholesterol in LDL [Mass/Vol] 71 mg/dL Normal 0-130 [facility] Comment on above: Performed By: #### L 500.4100, L500.2500 #### [facility] [address] [place], [address] Cholesterol in VLDL [Mass/Vol] 30 mg/dL Normal 5-40 [facility] Comment on above: Performed By: #### L 500.4100, L500.2500 #### [facility] [address] [place], [address] Triglyceride [Mass/Vol] 149 mg/dL Normal [facility] Comment on above: Result Comment: The drugs N-Acetylcysteine and Metamizole may falsely depress this assay. Serum Triglycerides Reference Interval Normal <150 mg/dL Borderline high 150 - 199 mg/dL High 200 - 499 mg/dL Very High > or = 500 mg/dL Performed By: #### L 500.4100, L500.2500 #### [facility] [address] [place], [address] .Auto Diffon 09-19-2023 Basophil, Absolute 0.1 10 3/mcL Normal 0.0-0.2 [facility] ([place]) Comment on above: Performed By: #### T DEYSI, CBC, ADIFF, ANEU, MDW, BMP, GFR, PBNP #### [address] [address] Basophils/100 WBC (Bld) 0.7 % Normal 0.0-2.5 [facility] ([place]) Comment on above: Performed By: #### T DEYSI, CBC, ADIFF, ANEU, MDW, BMP, GFR, PBNP #### [address] [address] Eosinophil, Absolute 0.0 10 3/mcL Normal 0.0-0.4 [facility] ([place]) Comment on above: Performed By: #### T DEYSI, CBC, ADIFF, ANEU, MDW, BMP, GFR, PBNP #### [address] [address] Eosinophils/100 WBC (Bld) 0.2 % Normal 0.0-7.0 [facility] ([place]) Comment on above: Performed By: #### T DEYSI, CBC, ADIFF, ANEU, MDW, BMP, GFR, PBNP #### [address] [address] Lymphocyte, Absolute 2.4 10 3/mcL Normal 0.8-3.9 [facility] ([place]) Comment on above: Performed By: #### T DEYSI, CBC, ADIFF, ANEU, MDW, BMP, GFR, PBNP #### [address] [address] Lymphocytes/100 WBC (Bld) 30.0 % Normal 10.0-50.0 [facility] ([place]) Comment on above: Performed By: #### T DEYSI, CBC, ADIFF, ANEU, MDW, BMP, GFR, PBNP #### [address] [address] Monocyte, Absolute 0.5 10 3/mcL Normal 0.2-1.0 [facility] ([place]) Comment on above: Performed By: #### T DEYSI, CBC, ADIFF, ANEU, MDW, BMP, GFR, PBNP #### [address] [address] Monocytes/100 WBC (Bld) 6.0 % Normal 1.7-13.0 [facility] ([place]) Comment on above: Performed By: #### T DEYSI, CBC, ADIFF, ANEU, MDW, BMP, GFR, PBNP #### [address] [address] Neutrophils/100 WBC (Bld) 63.1 % Normal 37.0-80.0 [facility] ([place]) Comment on above: Performed By: #### T DEYSI, CBC, ADIFF, ANEU, MDW, BMP, GFR, PBNP #### [address] [address] .GFRon 09-19-2023 GFR 57 ml/min/1.73sqm Normal [facility] ([place]) Comment on above: Result Comment: GFR Population mean for , Non- Americans Ages 20-29 = 116 mL/min/1.73 sq.m. Ages 30-39 = 107 mL/min/1.73 sq.m. Ages 40-49 = 99 mL/min/1.73 sq.m. Ages 50-59 = 93 mL/min/1.73 sq.m. Ages 60-69 = 85 mL/min/1.73 sq.m. Ages 70+ = 75 mL/min/1.73 sq.m. Chronic Kidney Disease: Less than 60 mL/min/1.73 square meters End Stage Renal Disease: Less than 15 mL/min/1.73 square meters Performed By: #### T SHERLYNHS, CBC, ADIFF, ANEU, MDW, BMP, GFR, PBNP #### [address] [address] GFR Non- 47 ml/min/1.73sqm Normal [facility] ([place]) Comment on above: Result Comment: GFR Population mean for , Non- Americans Ages 20-29 = 116 mL/min/1.73 sq.m. Ages 30-39 = 107 mL/min/1.73 sq.m. Ages 40-49 = 99 mL/min/1.73 sq.m. Ages 50-59 = 93 mL/min/1.73 sq.m. Ages 60-69 = 85 mL/min/1.73 sq.m. Ages 70+ = 75 mL/min/1.73 sq.m. Chronic Kidney Disease: Less than 60 mL/min/1.73 square meters End Stage Renal Disease: Less than 15 mL/min/1.73 square meters Performed By: #### T DEYSI, CBC, ADIFF, ANEU, MDW, BMP, GFR, PBNP #### [address] [address] .MDWon 09-19-2023 Monocyte Distribution Width 16.98 Normal 0.00-20.00 [facility] ([place]) Comment on above: Result Comment: For ED adult patients suspected of sepsis, MDW<=20.0 does not rule out sepsis or risk of sepsis Performed By: #### T DEYSI, CBC, ADIFF, ANEU, MDW, BMP, GFR, PBNP #### [address] [address] .NEUABSon 09-19-2023 Neutrophil, Absolute 5.1 10 3/mcL Normal 2.9-6.2 [facility] ([place]) Comment on above: Performed By: #### T DEYSI, CBC, ADIFF, ANEU, MDW, BMP, GFR, PBNP #### [address] [address] BMPon 09-19-2023 BUN/Creatinine Ratio 18 ratio Normal 7-27 [facility] ([place]) Comment on above: Performed By: #### T DEYSI, CBC, ADIFF, ANEU, MDW, BMP, GFR, PBNP #### [address] [address] Calcium [Mass/Vol] 9.6 mg/dL Normal 8.4-10.2 [facility] ([place]) Comment on above: Performed By: #### T DEYSI, CBC, ADIFF, ANEU, MDW, BMP, GFR, PBNP #### [address] [address] Chloride [Moles/Vol] 101 mmol/L Normal 98-107 [facility] ([place]) Comment on above: Performed By: #### T DEYSI, CBC, ADIFF, ANEU, MDW, BMP, GFR, PBNP #### [address] [address] CO2 [Moles/Vol] 25 mmol/L Normal 23-31 [facility] ([place]) Comment on above: Performed By: #### T DEYSI, CBC, ADIFF, ANEU, MDW, BMP, GFR, PBNP #### [address] [address] Creatinine [Mass/Vol] 1.16 mg/dL High 0.55-1.02 [facility] ([place]) Comment on above: Performed By: #### T DEYSI, CBC, ADIFF, ANEU, MDW, BMP, GFR, PBNP #### [address] [address] Electrolyte Balance 14.0 mEq/L Normal 4.0-15.0 [facility] ([place]) Comment on above: Performed By: #### T DEYSI, CBC, ADIFF, ANEU, MDW, BMP, GFR, PBNP #### [address] [address] Glucose [Mass/Vol] 101 mg/dL Normal 80-115 [facility] ([place]) Comment on above: Performed By: #### T DEYSI, CBC, ADIFF, ANEU, MDW, BMP, GFR, PBNP #### [address] [address] Potassium [Moles/Vol] 3.7 mmol/L Normal 3.5-5.1 [facility] ([place]) Comment on above: Performed By: #### T DEYSI, CBC, ERIWN, NAVEEN, MDW, BMP, GFR, PBNP #### [address] [address] Sodium [Moles/Vol] 140 mmol/L Normal 136-145 [facility] ([place]) Comment on above: Performed By: #### T DEYSI, CBC, ERWIN, ANEU, MDW, BMP, GFR, PBNP #### [address] [address] Urea nitrogen [Mass/Vol] 21 mg/dL High 7-18 [facility] ([place]) Comment on above: Performed By: #### T DEYSI, CBC, ERWIN, ANEU, MDW, BMP, GFR, PBNP #### [address] [address] CBCon 09-19-2023 Erythrocyte distribution width (RBC) [Ratio] 13.7 % Normal 11.5-14.5 [facility]) Comment on above: Performed By: #### T DEYSI, OPAL, ERWIN, ANEU, MDW, BMP, GFR, PBNP #### [address] [address] Hematocrit (Bld) [Volume fraction] 38.6 % Normal 37.0-47.0 [facility] ([place]) Comment on above: Performed By: #### T DEYSI, OPAL, ERWIN, ANEU, MDW, BMP, GFR, PBNP #### [address] [address] Hgb 13.3 G/dL Normal 12.0-16.0 [facility] ([place]) Comment on above: Performed By: #### T DEYSI, CBC, ERWIN, ANEU, MDW, BMP, GFR, PBNP #### [address] [address] MCH (RBC) [Entitic mass] 31.5 pg High 27.0-31.2 [facility] ([place]) Comment on above: Performed By: #### T DEYSI, CBC, ADIFF, ANEU, MDW, BMP, GFR, PBNP #### [address] [address] MCHC 34.5 G/dL Normal 33.0-37.0 [facility] ([place]) Comment on above: Performed By: #### T DEYSI, CBC, ADIFF, ANEU, MDW, BMP, GFR, PBNP #### [address] [address] MCV (RBC) [Entitic vol] 91.3 fL Normal 80.0-94.0 [facility] ([place]) Comment on above: Performed By: #### T DEYSI, CBC, ADIFF, ANEU, MDW, BMP, GFR, PBNP #### [address] [address] Platelet 257 10 3/mcL Normal 130-400 [facility] ([place]) Comment on above: Performed By: #### T DEYSI, CBC, ADIFF, ANEU, MDW, BMP, GFR, PBNP #### [address] [address] Platelet mean volume (Bld) [Entitic vol] 9.2 fL Normal 7.4-10.4 [facility] ([place]) Comment on above: Performed By: #### T DEYSI, CBC, ADIFF, ANEU, MDW, BMP, GFR, PBNP #### [address] [address] RBC 4.23 10 6/mcL Normal 4.20-5.40 [facility] ([place]) Comment on above: Performed By: #### T DEYSI, CBC, ADIFF, ANEU, MDW, BMP, GFR, PBNP #### [address] [address] WBC 8.1 10 3/mcL Normal 4.6-10.8 [facility] ([place]) Comment on above: Performed By: #### T DEYSI, CBC, ADIFF, ANEU, MDW, BMP, GFR, PBNP #### [place] [address] CVFLURVon 09-19-2023 FLU A PCR Negative Normal Negative [facility] ([place]) Comment on above: Performed By: #### C VFLURV #### [place] [address] FLU B PCR Negative Normal Negative [facility] ([place]) Comment on above: Performed By: #### C VFLURV #### [place] [address] RSV PCR Negative Normal Negative [facility] ([place]) Comment on above: Performed By: #### C VFLURV #### [place] [address] SARS-CoV-2 (COVID-19) RNA JATIN+probe Ql (Unsp spec) Negative Normal Negative [facility] ([place]) Comment on above: Result Comment: Resu lts from the Xpert Xpress CoV-2/Flu/RSV plus test should be correlated with the clinical history, epidemiological data, and other data available to the clinical evaluating the patient. Performance of the Xpert Xpress CoV-2/Flu/RSV plus test has only been established in nasopharyngeal swab specimen. Erroneous test results might occur from improper specimen collection, failure to follow the recommended sample collection, handling and storage procedures, technical error, or sample mix-up. False negative results may occur if a virus is present at a level below the analytical limit of detection. Viral nucleic acid may persist in vivo, independent of virus viability. Detection of analyte target(s) does not imply that the corresponding virus(es) are infectious or are the causative agents for clinical symptoms. Recent patient exposure to FluMist or other live attenuated influenza vaccines may cause inaccurate positive results. Performed By: #### C VFLURV #### [place] [address] LABORATORYOrdered By: SYSTEM SYSTEM on 09-19-2023 Basophil, Absolute 0.1 103/mcL Normal 0.0 - 0.2 10^3/mcL AO Workflow SS Basophils/100 WBC (Bld) 0.7 % Normal 0.0 - 2.5 % AO Workflow SS Calcium [Mass/Vol] 9.6 mg/dL Normal 8.4 - 10. 2 mg/dL AO ADM SS Chloride [Moles/Vol] 101 mmol/L Normal 98 - 10 7 mmol/L AO ADM SS CO2 [Moles/Vol] 25 mmol/L Normal 23 - 31 mmol/L AO ADM SS Creatinine [Mass/Vol] 1.16 mg/dL High 0.55 - 1.02 mg/dL AO ADM SS Electrolyte Balance 14.0 mEq/L Normal 4.0 - 15 .0 mEq/L AO ADM SS Eosinophil, Absolute 0.0 103/mcL Normal 0.0 - 0 .4 10^3/mcL AO Workflow SS Eosinophils/100 WBC (Bld) 0.2 % Normal 0.0 - 7.0 % AO Workflow SS Erythrocyte distribution width (RBC) [Ratio] 13.7 % Normal 11.5 - 14.5 % AO Workflow SS GFR/1.73 sq M.predicted among blacks MDRD (S/P/Bld) [Vol rate/Area] 57 ml/min/1.73sqm Invalid Interpretation Code AO Chemistry S Comment on above: Interpretive Data: GFR Population mean for , Non- Americans Ages 20-29 = 116 mL/min/1.73 sq.m. Ages 30-39 = 107 mL/min/1.73 sq.m. Ages 40-49 = 99 mL/min/1.73 sq.m. Ages 50-59 = 93 mL/min/1.73 sq.m. Ages 60-69 = 85 mL/min/1.73 sq.m. Ages 70+ = 75 mL/min/1.73 sq.m. Chronic Kidney Disease: Less than 60 mL/min/1.73 square meters End Stage Renal Disease: Less than 15 mL/min/1.73 square meters GFR/1.73 sq M.predicted among non-blacks MDRD (S/P/Bld) [Vol rate/Area] 47 ml/min/1.73sqm Invalid Interpretation Code AO Chemistry S Comment on above: Interpretive Data: GFR Population mean for , Non- Americans Ages 20-29 = 116 mL/min/1.73 sq.m. Ages 30-39 = 107 mL/min/1.73 sq.m. Ages 40-49 = 99 mL/min/1.73 sq.m. Ages 50-59 = 93 mL/min/1.73 sq.m. Ages 60-69 = 85 mL/min/1.73 sq.m. Ages 70+ = 75 mL/min/1.73 sq.m. Chronic Kidney Disease: Less than 60 mL/min/1.73 square meters End Stage Renal Disease: Less than 15 mL/min/1.73 square meters Glucose [Mass/Vol] 101 mg/dL Normal 80 - 115 mg/dL AO ADM SS Hematocrit (Bld) [Volume fraction] 38.6 % Normal 37.0 - 47.0 % AO Workflow SS Hemoglobin (Bld) [Mass/Vol] 13.3 G/dL Normal 12.0 - 16.0 G/dL AO Workflow SS Lymphocyte, Absolute 2.4 103/mcL Normal 0.8 - 3 .9 10^3/mcL AO Workflow SS Lymphocytes/100 WBC (Bld) 30.0 % Normal 10.0 - 50.0 % AO Workflow SS MCH (RBC) [Entitic mass] 31.5 pg High 27.0 - 31.2 pg AO Workflow SS MCHC 34.5 G/dL Normal 33.0 - 37.0 G/dL AO Workflow SS MCV (RBC) [Entitic vol] 91.3 fL Normal 80.0 - 94.0 fL AO Workflow SS Monocyte distribution width Auto (Bld) [Entitic vol] 16.98 1 Normal 0.00 - 20.00 AO Workflow SS Comment on above: Result Comment: For ED adult patients suspected of sepsis, MDW<=20.0 does not rule out sepsis or risk of sepsis Monocyte, Absolute 0.5 103/mcL Normal 0.2 - 1.0 10^3/mcL AO Workflow SS Monocytes/100 WBC (Bld) 6.0 % Normal 1.7 - 13.0 % AO Workflow SS Natriuretic peptide.B prohormone N-Terminal [Mass/Vol] 570 pg/mL High 0 - 125 pg/mL AO ADM SS Comment on above: Interpretive Data: N T-proBNP results of less than 300 pg/mL effectively rules out acute congestive heart failure with 99% negative predictive value. Neutrophil, Absolute 5.1 103/mcL Normal 2.9 - 6 .2 10^3/mcL AO Workflow SS Neutrophils/100 WBC (Bld) 63.1 % Normal 37.0 - 80.0 % AO Workflow SS Platelet mean volume (Bld) [Entitic vol] 9.2 fL Normal 7.4 - 10.4 fL AO Workflow SS Platelets (Bld) [#/Vol] 257 103/mcL Normal 130 - 400 10^3/mcL AO Workflow SS Potassium [Moles/Vol] 3.7 mmol/L Normal 3.5 - 5.1 mmol/L AO ADM SS RBC (Bld) [#/Vol] 4.23 106/mcL Normal 4.20 - 5.4 0 10^6/mcL AO Workflow SS Sodium [Moles/Vol] 140 mmol/L Normal 136 - 145 mmol/L AO ADM SS Troponin I.cardiac DL <= 0.01 ng/mL [Mass/Vol] 8 ng/L Normal 0 - 51 ng/L AO ADM SS Comment on above: Interpretive Data: H igh Sensitive Troponin I Reference Ranges: Female: 0-51 ng/L Male: 0-76 ng/L Testing performed on [employer] using a homogeneous sandwich chemiluminescent immunoassay based on iPrint technology. Urea nitrogen [Mass/Vol] 21 mg/dL High 7 - 18 mg/dL AO ADM SS Urea nitrogen/Creatinine [Mass ratio] 18 ratio Normal 7 - 27 ratio AO ADM SS WBC (Bld) [#/Vol] 8.1 103/mcL Normal 4.6 - 10.8 10^3/mcL AO Workflow SS LABORATORYOrdered By: Jeannie Everett on 09-19-2023 FLUAV RNA JATIN+probe Ql (Resp) Negative (09/19/23 12:13 AM) Normal Negative AO Auto Urine SS FLUBV RNA JATIN+probe Ql (Resp) Negative (09/19/23 12:13 AM) Normal Negative AO Auto Urine SS RSV RNA JATIN+probe Ql (Resp) Negative (09/19/23 12:13 AM) Normal Negative AO Auto Urine SS SARS-CoV-2 (COVID-19) RNA JATIN+probe Ql (Resp) Negative 4 (09/19/23 12:13 AM) Normal Negative AO Auto Urine SS Comment on above: Interpretive Data: R esults from the Xpert Xpress CoV-2/Flu/RSV plus test should be correlated with the clinical history, epidemiological data, and other data available to the clinical evaluating the patient. Performance of the Xpert Xpress CoV-2/Flu/RSV plus test has only been established in nasopharyngeal swab specimen. Erroneous test results might occur from improper specimen collection, failure to follow the recommended sample collection, handling and storage procedures, technical error, or sample mix-up. False negative results may occur if a virus is present at a level below the analytical limit of detection. Viral nucleic acid may persist in vivo, independent of virus viability. Detection of analyte target(s) does not imply that the corresponding virus(es) are infectious or are the causative agents for clinical symptoms. Recent patient exposure to FluMist or other live attenuated influenza vaccines may cause inaccurate positive results. PBNPon 09-19-2023 Natriuretic peptide B (Bld) [Mass/Vol] 570 pg/mL High 0-125 [facility] ([place]) Comment on above: Result Comment: NT-p roBNP results of less than 300 pg/mL effectively rules out acute congestive heart failure with 99% negative predictive value. Performed By: #### T DEYSI, CBC, ERWIN, NAVEEN, W, BMP, GFR, PBNP #### [place] [address] [facility] High Sensitivity Troponin I 8 ng/L Normal 0-51 [facility] ([place]) Comment on above: Result Comment: High Sensitive Troponin I Reference Ranges: Female: 0-51 ng/L Male: 0-76 ng/L Testing performed on [employer] using a homogeneous sandwich chemiluminescent immunoassay based on iPrint technology. Performed By: #### T DEYSI, CBC, ERWIN, NAVEEN, MDW, BMP, GFR, PBNP #### [place] [id number] [place], [place] [address] XR CHEST 1 VIEWon 09-19-2023 XR CHEST 1 VIEW ORIGINAL EXAMINATION: ONE XRAY VIEW OF THE CHEST 09/19/2023 12:28 am COMPARISON: None. HISTORY: ORDERING SYSTEM PROVIDED HISTORY: Reason for Exam: cough, sob FINDINGS: Cardiomediastinal silhouette is normal in size. Costophrenic angles are sharp. No radiographic pneumothorax. No focal consolidation. ACDF hardware. Old deformity to the right distal clavicle/acromioclavi cular joint. Degenerative changes of the spine. IMPRESSION: No focal consolidation. Interpreted by: Geovani Brown Preliminary Report By: Geovani Brown Electronically signed By Geovani Brown Dictated Date: 09/19/2023 12:29:20 AM Prelim Date: 09/19/2023 12:29:59 AM Sign Date: 09/19/2023 12:29:59 AM Ordering Provider: RED Nuñez [facility] ([place]) Office Visit Reporton 2023 Office Visit Report [facility] [place] [address] OFFICE VISIT Date of Service: 09/17/23 MR#: [id number] Acct: [id number] Patient: HEATHER DAVIS Rep #: [id number] : 1960 Provider: RODRIGO Hopkins Age/Sex: 62/F [place] [facility] Status: Signed Intake Vital Signs 12/01/20 13:35 09/17/23 09:44 09/17/23 09:56 Height 5 ft 5.75 in 5 ft 5.75 in 5 ft 5 in Weight: 224 lb 2 oz BMI 37.3 BP 152/74 H Blood Pressure Location Lt brachial Position Sitting Respiration 17 Pulse 76 Pulse Source NIBP Temp 98.4 F Temp Source Temporal Pulse Oximetry (%) 97 Oxygen Delivery Method room air Intake Visit Reasons: Cough Chief Complaint: cough, wheezing, chest congestion [employer] Required: No Is patient in pain?: No Allergies Penicillins Allergy (Verified 09/17/23 10:08) Unknown morphine Adverse Reaction (Verified 09/17/23 10:08) Itching Medications atenolol 100 mg tablet 100 mg PO DAILY 09/17/14 [History Confirmed 09/17/23] atorvastatin 40 mg tablet 40 mg PO QHS 09/17/14 [History Confirmed 09/17/23] omeprazole 20 mg capsule,delayed release 20 mg PO DAILY 09/17/14 [History Confirmed 09/17/23] sertraline 100 mg tablet 150 mg PO DAILY 09/17/14 [History Confirmed 09/17/23] promethazine 25 mg tablet 25 mg PO Q4H PRN PRN Nausea #20 tabs 11/11/15 [Rx Confirmed 09/17/23] multivitamin-minerals -iron fumarate 7.5 mg-folic acid 400 mcg tablet 1 ea PO DAILY #30 tabs 11/12/15 [Rx Confirmed 09/17/23] bupropion HCl 150 mg tablet,12 hr sustained-release mg PO 06/25/20 [History Confirmed 09/17/23] albuterol sulfate 90 mcg/actuation aerosol inhaler 2 puff inhalation Q4-6H PRN shortness of breath or wheezing #6.7 grams 09/17/23 [Rx Confirmed 09/17/23] azithromycin 250 mg tablet (Zithromax Z-Colin) See Rx Instructions PO .COMPLEX #6 tabs 09/17/23 [Rx Confirmed 09/17/23] prednisone 10 mg tablet 10 mg PO .COMPLEX #30 tabs 09/17/23 [Rx] Is last menstrual period known: No Post menopausal: Yes Patient : No Nurse's Note: cough, wheezing, chest congestion x 1 week. hx asthma but last two times pt had covid it started like this. PFSH Medical History (Updated 09/17/23 @ 10:19 by Kelly Velasquez PA, PA) Asthma Depression GERD (gastroesophageal reflux disease) HTN (hypertension) Hyperlipidemia Social History (Updated 09/17/23 @ 10:10 by Camelia Newsome) Smoking Status: Former smoker alcohol intake: current substance use type: does not use HPI HPI Chief Complaint: cough, wheezing, chest congestion Details: HEATHER DAVIS, is a 62 F who presents to the office today for cough, wheezing, sinus congestion, fatigue. Patient has had this cough that has been ongoing for a week. She started with bodyaches however this is subsided. She did test herself at home for COVID when this started it was negative. Her cough is keeping her up at night. She does have albuterol however this is . ROS Const Constitutional: Positive for other (ROS negative x 6 except what is described above) Exam Const General: cooperative, no acute distress, well developed and ill appearing acutely Orientation: alert, awake and oriented x3 HENMT Head: normocephalic and atraumatic Ears: hearing grossly normal bilaterally and TM's normal bilaterally Nose: external nose normal and nasal mucous membranes and turbinates normal Mouth: moist mucous membranes Throat: posterior oropharynx normal and tonsils normal Eyes General: appearance normal, both eyes and all related structures Conjunctivae: conjunctivae normal Pupils: PERRL EOM: EOM intact bilaterally Neck Neck: normal visual inspection and no lymphadenopathy Carotids: no bruits Chest Chest palpation inspection: normal inspection of the chest Resp Effort Inspection: symmetric chest movement Auscultation: Bilateral: Inspiratory Wheezes and Expiratory Wheezes Other: mnpc Cardio Palpation: normal PMI Rate: regular rate Rhythm: regular rhythm Heart Sounds: S1 normal, S2 normal, no gallops, no murmurs and no rubs GI Inspection: normal to inspection Palpation: soft and no hepatosplenomegaly Neuro General: patient alert, patient awake, patient oriented x3, moves all extremities and CN's II-XI intact bilaterally Coding Level of Care Code Off vis,est,level 3 Diagnoses Pneumonia J18.9 Assessment and Plan Assessment and Plan (1) Pneumonia: Status: Acute Plan: Advised patient to complete course of antibiotics given. Also prescribed an albuterol inhaler and prednisone. Advised patient on the importance of hydration. Recommended the use of [id number] support from Advil, Tylenol and lfxc-hqd-rinoacb cold medications to help alleviate symptoms. Did review maximum dosing on each of these medications to avoid accidental overdose of medications. Advised if not impro (more content not included)... Normal [facility] Absolute lymphocyte countOrd ered By: Luda Georgina on 01-03-2023 Lymphocytes Auto (Unsp spec) [#/Vol] 1.69 10*3/uL 0.83-4.51 [facility] Basophil percentageOrdered B y: Luda Souzasenia on 01-03-2023 Basophils/100 WBC (Bld) 0.7 % 0-1 [facility] Bilirubin [Mass/Vol] 0.40 mg/dL 0.20-1.00 [facility] Comment on above: For patients on eltr ombopag therapy, use of Dimension [place] TBIL is not recommended. Chloride [Moles/Vol] 108 mmol/L 98-107 [facility] Cholesterol [Mass/Vol] 168 mg/dL <200 [facility] Comment on above: <200 mg/dL Desirable 200-240 mg/dL Borderline >240 mg/dL High Risk Eosinophils/100 WBC (Bld) 2.5 % 0-5 [facility] Glucose [Mass/Vol] 81 mg/dL 74-106 [facility] Neutrophils (Bld) [#/Vol] 2.9 10*3/uL 2.0-7.7 [facility] Neutrophils/100 WBC (Bld) 53.6 % 47-70 [facility] Potassium [Moles/Vol] 4.3 mmol/L 3.5-5.1 [facility] Protein [Mass/Vol] 7.1 g/dL 6.4-8.2 [facility] Sodium [Moles/Vol] 141 mmol/L 136-145 [facility] Triglyceride [Mass/Vol] 221 mg/dL <199 [facility] Comment on above: The drugs N-Acetylcy steine and Metamizole may falsely depress this assay.Serum Triglycerides Reference Interval Normal <150 mg/dL Borderline high 150 - 199 mg/dL High 200 - 499 mg/dL Very High > or = 500 mg/dL WBC (Bld) [#/Vol] 5.5 10*3/uL 4.4-11.0 [facility] Blood erythrocytes count (nu mber/volume)Ordered By: Luda Erickson on 01-03-2023 RBC (Bld) [#/Vol] 4.04 10*6/uL 4.2-5.4 [facility] Blood hemoglobin measurement (mass/volume)Ordered By: Luda Erickson on 01-03-2023 Hemoglobin (Bld) [Mass/Vol] 12.2 g/dL 12.0-15.0 [facility] Blood lymphocytes/100 leukoc ytesOrdered By: Luda Erickson on 01-03-2023 Lymphocytes/100 WBC (Bld) 30.7 % 19-41 [facility] Blood monocytes/100 leukocyt esOrdered By: Luda Erickson on 01-03-2023 Monocytes/100 WBC (Bld) 10.9 % 0-10 [facility] Blood platelet mean volumeOr dered By: Luda Erickson on 01-03-2023 Platelet mean volume (Bld) [Entitic vol] 12.4 fL 6.2-12.0 [facility] Determination of erythrocyte mean corpuscular volume (MCV)Ordered By: Luda Erickson on 01-03-2023 MCV (RBC) [Entitic vol] 98.0 fL 81-99 [facility] Hematocrit Auto (Bld) [Volum e fraction]Ordered By: Luda Erickson on 01-03-2023 Hematocrit (Bld) [Volume fraction] 39.6 % 37-47 [facility] Laboratory - Chemistry and C hemistry - challengeOrdered By: Luda Erickson on 01-03-2023 ALP [Catalytic activity/Vol] 72 U/L 45-117 [facility] ALT [Catalytic activity/Vol] 27 U/L 13-56 [facility] CO2 [Moles/Vol] 29.0 mmol/L 21.0-32.0 [facility] Globulin (S) [Mass/Vol] 3.2 g/dL 2.2-4.2 [facility] Urea nitrogen/Creatinine [Mass ratio] 15.4 mg/mg 10-20 [facility] - Hematology and Cell countsOrdered By: Luda Erickson on 01-03-2023 Erythrocyte distribution width (RBC) [Entitic vol] 49.2 fL 35.1-43.9 [facility] Erythrocyte distribution width (RBC) [Ratio] 13.5 % 11.6-14.6 [facility] Immature granulocytes/100 WBC (Bld) 1.600 % 0.0-0.9 [facility] Comment on above: IG% - Immature Granu locytes (promyelocytes, myelocytes and metamyelocytes) > 1% indicates that a LEFT SHIFT is Present. MCH (RBC) [Entitic mass] 30.2 pg 27.0-32.0 [facility] Nucleated RBC/100 WBC (Bld) [Ratio] 0 % 0-5 [facility] MCHC Auto (RBC) [Mass/Vol]Or dered By: Luda Erickson on 01-03-2023 MCHC (RBC) [Mass/Vol] 30.8 g/dL 32-36 [facility] No Panel InformationOrdered By: Luda Erickson on 01-03-2023 Estimated GFR (MDRD) Amer 60 mL/min >60 [facility] Comment on above: GFR Calc Estimated GFR (MDRD) Non-Af Amer 50 mL/min >60 [facility] Comment on above: Non- GFR Calc Platelets bldOrdered By: Luda Erickson on 01-03-2023 Platelets (Bld) [#/Vol] 210 10*3/uL 150-450 [facility] Serum or plasma albumin stephen urement (mass/volume)Ordered By: Luda Erickson on 01-03-2023 Albumin [Mass/Vol] 3.9 g/dL 3.2-5.0 [facility] Serum or plasma albumin/glob ulin mass ratioOrdered By: Luda Erickson on 01-03-2023 Albumin/Globulin [Mass ratio] 1.2 {ratio} 0.9-2.4 [facility] Serum or plasma calcium stephen urement (mass/volume)Ordered By: Luda Erickson on 01-03-2023 Calcium [Mass/Vol] 9.4 mg/dL 8.5-10.1 [facility] Serum or plasma cholesterol in HDL measurement (mass/volume)Ordered By: Luda Erickson on 01-03-2023 Cholesterol in HDL [Mass/Vol] 63 mg/dL >40 [facility] Comment on above: The drugs N-Acetylcy steine and Metamizole may falsely depress this assay. Reference Range HDL <40 mg/dL Low HDL Cholesterol HDL >or= 60 mg/dL High HDL Cholesterol Serum or plasma cholesterol in VLDL measurement (mass/volume)Ordered By: Luda Erickson on 01-03-2023 Cholesterol in VLDL [Mass/Vol] 44 mg/dL 5-40 [facility] Serum or plasma creatinine m easurement (mass/volume)Ordered By: Luda Erickson on 01-03-2023 Creatinine [Mass/Vol] 1.17 mg/dL 0.55-1.02 [facility] Comment on above: The validity of the calculated GFR & GFRAA in patients over 70 years has not been determined. Clinical correlation is essential. Serum or plasma low density lipoprotein (LDL) cholesterol measurement (mass/volume)Ordered By: Luda Erickson on 01-03-2023 Cholesterol in LDL [Mass/Vol] 61 mg/dL 0-130 [facility] Serum or plasma urea nitroge n measurement (mass/volume)Ordered By: Luda Erickson on 01-03-2023 Urea nitrogen [Mass/Vol] 18 mg/dL 7-18 [facility] Thin prep Papanicolaou smear with manual screeningOrdered By: Luda Erickson on 01-03-2023 Thin prep Papanicolaou smear with manual screening 21 U/L 15-37 [facility] Thin prep Papanicolaou smear with manual screening 4 5-15 [facility] Basophil percentageOrdered B y: Dr. Erickson on 07-05-2022 Chloride [Moles/Vol] 104 mmol/L 98-107 [facility] Cholesterol [Mass/Vol] 176 mg/dL <200 [facility] Comment on above: <200 mg/dL Desirable 200-240 mg/dL Borderline >240 mg/dL High Risk Glucose [Mass/Vol] 120 mg/dL 74-106 [facility] Comment on above: Fasting Glucose resu lt from 100 to 125 mg/dL suggests IMPAIRED HOMEOSTASIS per A.D.A. criteria. Potassium [Moles/Vol] 3.8 mmol/L 3.5-5.1 [facility] Sodium [Moles/Vol] 139 mmol/L 136-145 [facility] Triglyceride [Mass/Vol] 211 mg/dL <199 [facility] Comment on above: The drugs N-Acetylcy steine and Metamizole may falsely depress this assay.Serum Triglycerides Reference Interval Normal <150 mg/dL Borderline high 150 - 199 mg/dL High 200 - 499 mg/dL Very High > or = 500 mg/dL Laboratory - Chemistry and C hemistry - challengeOrdered By: Dr. Erickson on 07-05-2022 ALT [Catalytic activity/Vol] 22 U/L 13-56 [facility] CO2 [Moles/Vol] 29.0 mmol/L 21.0-32.0 [facility] Urea nitrogen/Creatinine [Mass ratio] 10.8 mg/mg 10-20 [facility] No Panel InformationOrdered By: Dr. Erickson on 07-05-2022 Estimated GFR (MDRD) Amer 71 mL/min >60 [facility] Comment on above: GFR Calc Estimated GFR (MDRD) Non-Af Amer 58 mL/min >60 [facility] Comment on above: Non- GFR Calc Serum or plasma calcium stephen urement (mass/volume)Ordered By: Dr. Erickson on 07-05-2022 Calcium [Mass/Vol] 8.7 mg/dL 8.5-10.1 [facility] Serum or plasma cholesterol in HDL measurement (mass/volume)Ordered By: Dr. Erickson on 07-05-2022 Cholesterol in HDL [Mass/Vol] 59 mg/dL >40 [facility] Comment on above: The drugs N-Acetylcy steine and Metamizole may falsely depress this assay. Reference Range HDL <40 mg/dL Low HDL Cholesterol HDL >or= 60 mg/dL High HDL Cholesterol Serum or plasma cholesterol in VLDL measurement (mass/volume)Ordered By: Dr. Erickson on 07-05-2022 Cholesterol in VLDL [Mass/Vol] 42 mg/dL 5-40 [facility] Serum or plasma creatinine m easurement (mass/volume)Ordered By: Dr. Erickson on 07-05-2022 Creatinine [Mass/Vol] 1.02 mg/dL 0.55-1.02 [facility] Comment on above: The validity of the calculated GFR & GFRAA in patients over 70 years has not been determined. Clinical correlation is essential. Serum or plasma low density lipoprotein (LDL) cholesterol measurement (mass/volume)Ordered By: Dr. Erickson on 07-05-2022 Cholesterol in LDL [Mass/Vol] 75 mg/dL 0-130 [facility] Serum or plasma urea nitroge n measurement (mass/volume)Ordered By: Dr. Erickson on 07-05-2022 Urea nitrogen [Mass/Vol] 11 mg/dL 7-18 [facility] Thin prep Papanicolaou smear with manual screeningOrdered By: Dr. Erickson on 07-05-2022 Thin prep Papanicolaou smear with manual screening 15 U/L 15-37 [facility] Thin prep Papanicolaou smear with manual screening 6 5-15 [facility] Basophil percentageon 2021 Chloride [Moles/Vol] 105 mmol/L 98-107 [facility] Work Phone: Cholesterol [Mass/Vol] 190 mg/dL <200 [facility] Work Phone: Comment on above: <200 mg/dL Desirable 200-240 mg/dL Borderline >240 mg/dL High Risk Glucose [Mass/Vol] 102 mg/dL 74-106 [facility] Work Phone: Comment on above: Fasting Glucose resu lt from 100 to 125 mg/dL suggests IMPAIRED HOMEOSTASIS per A.D.A. criteria. Potassium [Moles/Vol] 4.1 mmol/L 3.5-5.1 [facility] Work Phone: Sodium [Moles/Vol] 141 mmol/L 136-145 [facility] Work Phone: Triglyceride [Mass/Vol] 313 mg/dL [facility] Work Phone: Comment on above: The drugs N-Acetylcy steine and Metamizole may falsely depress this assay.Serum Triglycerides Reference Interval Normal <150 mg/dL Borderline high 150 - 199 mg/dL High 200 - 499 mg/dL Very High > or = 500 mg/dL Laboratory - Chemistry and C hemistry - challengeon 09-27-2021 ALT [Catalytic activity/Vol] 30 U/L 13-56 [facility] Work Phone: CO2 [Moles/Vol] 30.0 mmol/L 21.0-32.0 [facility] Work Phone: Urea nitrogen/Creatinine [Mass ratio] 11.3 mg/mg 10-20 [facility] Work Phone: No Panel Informationon 09-27 Estimated GFR (MDRD) Amer 62 mL/min >60 [facility] Work Phone: Comment on above: GFR Calc Estimated GFR (MDRD) Non-Af Amer 51 mL/min >60 [facility] Work Phone: Comment on above: Non- GFR Calc Serum or plasma calcium stephen urement (mass/volume)on 09-27-2021 Calcium [Mass/Vol] 9.0 mg/dL 8.5-10.1 [facility] Work Phone: Serum or plasma cholesterol in HDL measurement (mass/volume)on 09-27-2021 Cholesterol in HDL [Mass/Vol] 57 mg/dL [facility] Work Phone: Comment on above: The drugs N-Acetylcy steine and Metamizole may falsely depress this assay. Reference Range HDL <40 mg/dL Low HDL Cholesterol HDL >or= 60 mg/dL High HDL Cholesterol Serum or plasma cholesterol in VLDL measurement (mass/volume)on 09-27-2021 Cholesterol in VLDL [Mass/Vol] 63 mg/dL 5-40 [facility] Work Phone: Serum or plasma creatinine m easurement (mass/volume)on 09-27-2021 Creatinine [Mass/Vol] 1.15 mg/dL 0.55-1.02 [facility] Work Phone: Comment on above: The validity of the calculated GFR & GFRAA in patients over 70 years has not been determined. Clinical correlation is essential. Serum or plasma low density lipoprotein (LDL) cholesterol measurement (mass/volume)on 09-27-2021 Cholesterol in LDL [Mass/Vol] 70 mg/dL 0-130 [facility] Work Phone: Serum or plasma urea nitroge n measurement (mass/volume)on 09-27-2021 Urea nitrogen [Mass/Vol] 13 mg/dL -18 [facility] Work Phone: Thin prep Papanicolaou smear with manual screeningon 09-27-2021 Thin prep Papanicolaou smear with manual screening 20 U/L 15-37 [facility] Work Phone: Thin prep Papanicolaou smear with manual screening 6 5-15 [facility] Work Phone: Vital Signs Date Time Vital Sign Value Performing Clinician Laurence schultz 09-19-2023 01:40-0400 Diastolic Blood Pressure Non-Invasive 68 mm[Hg] [facility] [employer] [facility] 09-19-2023 01:40-0400 Heart rate 78 /min [facility] [employer] [facility] 09-19-2023 01:40-0400 Respiratory rate 20 /min [facility] [employer] [facility] 09-19-2023 01:40-0400 Systolic Blood Pressure Non-Invasive 125 mm[Hg] [facility] [employer] [facility] 09-18-2023 23:56-0400 Heart rate 92 /min RED REICHFIELD DO [facility] 09-18-2023 23:56-0400 Respiratory rate 24 /min RED REICHFIELD DO [facility] 09-18-2023 23:45-0400 Body temperature 97.7 [degF] RED REICHFIELD DO [facility] 09-18-2023 23:45-0400 Diastolic Blood Pressure Non-Invasive 80 mm[Hg] RED REICHFIELD DO [facility] 09-18-2023 23:45-0400 Heart rate 86 /min RED REICHFIELD DO [facility] 09-18-2023 23:45-0400 Respiratory rate 18 /min RED REICHFIELD DO [facility] 09-18-2023 23:45-0400 Systolic Blood Pressure Non-Invasive 170 mm[Hg] RED REICHFIELD DO [facility] Encounters Encounter Date Encounter Type Care Provider Facility Start: 01-12-2024 End: 01-12-2024 ambulatory Luda Erickson Facility:[facility] Start: 01-08-2024 End: 01-08-2024 ambulatory Luda Erickson Facility:[facility] Start: 09-19-2023 End: 09-19-2023 Emergency department patient visit DR LUDA ERICKSON MD Facility:[facility] Start: 09-18-2023 End: 09-19-2023 Emergency department patient visit RED REICHFIELD DO [facility] Start: 09-17-2023 End: 09-17-2023 ambulatory [place] WALLACE [place] [place]: 01-03-2023 End: 01-03-2023 ambulatory [facility] Work Phone: Start: 01-03-2023 End: 01-03-2023 Patient encounter procedure [facility] Start: 07-05-2022 End: 07-05-2022 ambulatory [facility] Work Phone: Start: 07-05-2022 End: 07-05-2022 Patient encounter procedure [facility] Start: 09-27-2021 End: 09-27-2021 Patient encounter procedure [facility] Immunizations Immunization Date Immunization Notes Care Provider Fa cility 09-15-2020 Covid (Pfizer) [facility] 08-25-2020 Covid (Pfizer) [facility] Payers Date Payer Category Payer Unknown [id number] 2023 Self-pay [id number] 2023 Unknown [id number] 2023 Unknown [id number] 2015 Private Health Insurance [facility] [id number] 2015 Unknown [id number] 1960 Unknown [id number] Unknown [id number] Unknown [facility] [id number] Unknown [id number] Unknown [id number] Unknown [id number] Social History Date Type Detail Facility Start: 07-02-2020 End: 07-02-2020 Tobacco smoking status FLIS Unknown if ever smoked [facility] Start: 1960 Sex Assigned At Female [facility] Tobacco smoking status No Smokin g Status Entered [facility] Functional Status Date Assessment Result Facility 09-19-2023 Functional Status Assistive Device None [facility] 09-19-2023 Functional Status Repositions self [facility] Mental Status Date Assessment Result Facility 09-19-2023 Mental Status Orientation Oriented x 4 [facility] 09-19-[address] [facility] Discharge instructions 09-19-2023 Note Date & Type Note Facility 09-19-2023 Hospital Discharg e instructions Patient Education 09/18/2023 23:59:25 Bronchitis, Antibiotic Treatment (Adult) Bronchitis, Antibiotic Treatment (Adult) Bronchitis is an infection of the air passages (bronchial tubes) in your lungs. It often occurs when you have a cold. This illness is contagious during the first few days and is spread through the air by coughing and sneezing, or by direct contact (touching the sick person and then touching your own eyes, nose, or mouth). Symptoms of bronchitis include cough with mucus (phlegm) and low-grade fever. Bronchitis usually lasts 7 to 14 days. Mild cases can be treated with simple home remedies. More severe infection is treated with an antibiotic. Home care Follow these guidelines when caring for yourself at home: If your symptoms are severe, rest at home for the first 2 to 3 days. When you go back to your usual activities, don't let yourself get too tired. Don't smoke. Also stay away from secondhand smoke. You may use ound-odq-hhsqmzq medicines to control fever or pain, unless another medicine was prescribed. If you have chronic liver or kidney disease or have ever had a stomach ulcer or gastrointestinal bleeding, talk with your healthcare provider before using these medicines. Also talk to your provider if you are taking medicine to prevent blood clots. Aspirin should never be given to anyone younger than 18 who is ill with a viral infection or fever. It may cause severe liver or brain damage. Your appetite may be low, so a light diet is fine. Stay well hydrated by drinking 6 to 8 glasses of fluids per day. This includes water, soft drinks, sports drinks, juices, tea, or soup. Extra fluids will help loosen mucus in your nose and lungs. Dsjk-ncm-aiwzxtd cough, cold, and sore-throat medicines will not shorten the length of the illness, but they may be helpful to reduce your symptoms. Don't use decongestants if you have high blood pressure. Finish all antibiotic medicine. Do this even if you are feeling better after only a few days. Follow-up care Follow up with your healthcare provider, or as advised. If you had an X-ray or ECG (electrocardiogram), a specialist will review it. You will be told of any new test results that may affect your care. If you are age 65 or older, if you smoke, or if you have a chronic lung disease or condition that affects your immune system, ask your healthcare provider about getting a pneumococcal vaccine and a yearly flu shot (influenza vaccine). When to seek medical advice Call your healthcare provider right away if any of these occur: Fever of 100.4 F (38 C) or higher, or as directed by your healthcare provider Coughing up more sputum Weakness, drowsiness, headache, facial pain, ear pain, or a stiff neck Call 911 Call 911 if any of these occur. Coughing up blood Weakness, drowsiness, headache, or stiff neck that get worse Trouble breathing, wheezing, or pain with breathing [id number] [employer]. [address] [place] [address]. All rights reserved. This information is not intended as a substitute for professional medical care. Always follow your healthcare professional's instructions. Follow Up Care 09/18/2023 23:45:12 With:Go to emergency room if symptoms worsen Address:Unknown When:2-4 days With:LUDA ERICKSON MD Address: [address] [place] [id number] When:2-4 days [facility] Clinical Note 09-19-2023 Note Date & Type Note Facility 09-19-2023 Note Discharge Instructions Thank you for allowing [facility] to assist you with your healthcare needs. The following is important discharge information regarding your hospital visit. Diagnosis from Today's Visit Bronchitis SOB - Shortness of breath What to Do Next Instructions from Your Care Team Continue taking your steroids, inhaler, and antibiotics as previously prescribed. Follow-up with your primary care doctor by calling today for close follow-up. Return emergency department if experience worsening symptoms or any other care concern. No qualifying data available. Post Acute Orders No qualifying data available. You Need to Schedule the Following Appointments Follow Up with Go to emergency room if symptoms worsen When Within 2-4 days Follow Up with LUDA ERICKSON MD When Within 2-4 days Where: [address] [place], [place] [id number]- Allergies morphine penicillin Medications Please ask your primary doctor or pharmacist before taking any other medication not listed, including over the counter drugs, herbal medications, vitamins and or supplements as they may interact with your home medications. Please take this list to your next doctor s visit. Bring all medications you take, including over the counter medications, herbals and other supplements with you to your doctor s visit. Patients and families are reminded to discard old lists and to update any records with all medication providers or retail pharmacies. Education Materials Bronchitis, Antibiotic Treatment (Adult) Bronchitis is an infection of the air passages (bronchial tubes) in your lungs. It often occurs when you have a cold. This illness is contagious during the first few days and is spread through the air by coughing and sneezing, or by direct contact (touching the sick person and then touching your own eyes, nose, or mouth). Symptoms of bronchitis include cough with mucus (phlegm) and low-grade fever. Bronchitis usually lasts 7 to 14 days. Mild cases can be treated with simple home remedies. More severe infection is treated with an antibiotic. Home care Follow these guidelines when caring for yourself at home: If your symptoms are severe, rest at home for the first 2 to 3 days. When you go back to your usual activities, don't let yourself get too tired. Don't smoke. Also stay away from secondhand smoke. You may use uvnw-jmz-fwlkwqn medicines to control fever or pain, unless another medicine was prescribed. If you have chronic liver or kidney disease or have ever had a stomach ulcer or gastrointestinal bleeding, talk with your healthcare provider before using these medicines. Also talk to your provider if you are taking medicine to prevent blood clots. Aspirin should never be given to anyone younger than 18 who is ill with a viral infection or fever. It may cause severe liver or brain damage. Your appetite may be low, so a light diet is fine. Stay well hydrated by drinking 6 to 8 glasses of fluids per day. This includes water, soft drinks, sports drinks, juices, tea, or soup. Extra fluids will help loosen mucus in your nose and lungs. Wwkb-jmg-zjhrhgo cough, cold, and sore-throat medicines will not shorten the length of the illness, but they may be helpful to reduce your symptoms. Don't use decongestants if you have high blood pressure. Finish all antibiotic medicine. Do this even if you are feeling better after only a few days. Follow-up care Follow up with your healthcare provider, or as advised. If you had an X-ray or ECG (electrocardiogram), a specialist will review it. You will be told of any new test results that may affect your care. If you are age 65 or older, if you smoke, or if you have a chronic lung disease or condition that affects your immune system, ask your healthcare provider about getting a pneumococcal vaccine and a yearly flu shot (influenza vaccine). When to seek medical advice Call your healthcare provider right away if any of these occur: Fever of 100.4 F (38 C) or higher, or as directed by your healthcare provider Coughing up more sputum Weakness, drowsiness, headache, facial pain, ear pain, or a stiff neck Call 911 Call 911 if any of these occur. Coughing up blood Weakness, drowsiness, headache, or stiff neck that get worse Trouble breathing, wheezing, or pain with breathing [id number] [employer]. [address] [place] [address], [place] [address]. All rights reserved. This information is not intended as a substitute for professional medical care. Always follow your healthcare professional's instructions. Additional Information VACCINATE! IT SAVES LIVES! Members of the community who have not yet received the COVID-19 vaccine and would like to receive it can visit one of [facility] vaccine clinics. There are many vaccine clinic locations within the [facility]. For locations and available times, please visit www.gettheshot.coronavirus.[place].gov/. It is important to note that some COVID mobile vaccine clinics are held outdoors and may be canceled in rainy or stormy conditions. To learn more about pediatric vaccinations (ages 5-11), we invite you to visit the [facility] webpage. [email or web address] -Questions.html To learn more about the COVID-19 vaccine, we invite you to visit the CDC website for a list of frequently asked questions. https://www.cdc.gov/coronavirus/2019-n cov/vaccines/faq.html [facility] Patient Portal Access Instructions: Stay connected with your healthcare team and access your personal medical information anytime with the [facility] Patient Portal. If you would like a full copy of your medical records please contact the [facility] Medical Records Department Monday through Monday between 8a.m. and 4:30p.m. Please follow the directions below to access the portal: 1.Access the email account you provided upon registration to the hospital.2.Look for an invitation email from [facility].3.Open the email and access the invitation link: Accept Invitation to [facility]4.Fill in the required drew to create your account. Sign into [email or web address] with your username and password that you created in the above steps to stay up to date. You can then view a summary of results, a summary of your visits, and the ability to download your summaries to your computer or send the information securely to a physician. Remember that your healthcare information is confidential, so carefully consider who you will allow to register on the [facility] Patient Portal for access to your information. You can also access the [facility] Patient Portal on the [employer]ianna. Simply click on Health Records under Health Data and then click on the [facility] logo. HOW TO SAFELY DISPOSE OF PRESCRIPTION MEDICATIONS Please use one of the following methods to safely dispose of your unused medications. 1.Use a drug disposal kit: the drug disposal pouch allows you to safely discard your old and unused drugs. Ask your nurse to give you one when you are discharged.2.Visit a local take-back location: Many local pharmacies and police departments have programs that collect old and unwanted prescription drugs. Call your local pharmacy or go to http://bit.[employer]/1T2Ol6i to find one close to you.3.Make use of household items: Use cat litter or old coffee grounds to dispose medications if other options are not available. Mix your drugs with these household products, seal them in an airtight container and throw it into the garbage. Call [facility]: [phone] to be sure your drugs can be disposed of in this way. Some medicines may require a different approach.4.Never flush your medications down the toilet. IF YOU HAVE BEEN PRESCRIBED AN OPIOIDS FOR PAIN If you have been prescribed an opioid (such as hydrocodone, oxycodone or morphine), it is critical to understand the possible side effects and risks of opioid pain medications. Even when taken as directed, opioids can have several side effects including: Tolerance, meaning you might need to take more of a medication for the same pain relief. Nausea, vomiting and/or constipation. Sleepiness, dizziness, dry mouth, confusion, depression or itching. Physical dependence, meaning you have withdrawal symptoms when a medication is stopped ? this can develop within a few days. KNOW YOUR RESPONSIBILITIES It is important to know exactly how much and how often to take the opioid pain medications you are prescribed. Never take opioids in higher amounts or more often than prescribed. Do not combine opioids with alcohol or other drugs that cause drowsiness, such as benzodiazepines, also known as benzos, including diazepam and alprazolam, muscle relaxants or sleep aids. Never sell or share prescription opioids. This is illegal. Store opioids in a secure place and out of reach of others (including children, family, friends and visitors). The last page(s) of this document has been signed and retained as a CHART COPY Signatures Patient Education Materials Bronchitis, Antibiotic Treatment (Adult) Medication Leaflets My discharge plan and instructions have been reviewed and explained to me and IRYAN JEANETTE understand my current condition and have read and understand these discharge instructions. I have received a written copy of the plan/instructions. If I have questions, I am aware that I should contact my doctor. Patient/Counter Hand Signature: _ Date/Time: Relationship to Patient: Witness Name/Signature: Date/Time: [facility] Clinical Note 09-19-2023 Note Date & Type Note Facility 09-19-2023 Note ORIGINAL EXAMINATION: ONE XRAY VIEW OF THE CHEST 09/19/2023 12:28 am COMPARISON: None. HISTORY: ORDERING SYSTEM PROVIDED HISTORY: Reason for Exam: cough, sob FINDINGS: Cardiomediastinal silhouette is normal in size. Costophrenic angles are sharp. No radiographic pneumothorax. No focal consolidation. ACDF hardware. Old deformity to the right distal clavicle/acromioclavicular joint. Degenerative changes of the spine. IMPRESSION: No focal consolidation. Interpreted by: Geovani Brown Preliminary Report By: Geovani Brown Electronically signed By Geovani Brown Dictated Date: 09/19/2023 12:29:20 AM Prelim Date: 09/19/2023 12:29:59 AM Sign Date: 09/19/2023 12:29:59 AM Ordering Provider: RED GRIER [facility] Clinical Note 09-19-2023 Note Date & Type Note Facility 09-19-2023 Note Sinus rhythm Minimal ST depression, inferior leads Electronic Signature: RED GRIER DO 09/19/2023 00:18:37 [facility] Evaluation + Plan note Note Date & Type Note Facility Evaluation + Plan note No data available for this section [facility] Evaluation note Note Date & Type Note Facility Evaluation note No assessment information availa [facility] Work Phone: Summary note Note Date & Type Note Facility Summary note RICHARD Larose: PERFORM Event Display: Patient Summary Documents Authored [facility] Advance Directives No Advanced Directives Records Found Advance Directive Response Recorded Date/ Time Advance Directives No December 24 4:50pm Living Will No December 25, 2015 4:50pm Power of Licensed Massage Therapist No December 24 6 4:50pm Advance Directive Response Recorded Date/ Time Advance Directives No December 24 3:50pm Living Will No December 25, 2015 3:50pm Power of Licensed Massage Therapist No December 24 6 3:50pm Summary Purpose Family History No Family History Records Found Additional Source Comments Goals (unrecognized section and content) Goals may be documented in a n alternate sectionGoals may be documented in an alternate sectionGoals may be documented in an alternate section No data available for this section Care Teams (unrecognized sec tion and content) Team Status: Active Member Role Status Dates Dr. Luda Erickson MD Family Provider Active Dr. Luda Erickson MD Primary Care Provider Active Team Status: Inactive Member Role Status Dates Dr. Luda Erickson MD Primary Care Prov ider, Attending Provider, Referring Provider Active Team Status: Inactive Member Role Status Dates Dr. Luda Erickson MD Primary Care Provider, Attendin g Provider Active INFORMATION SOURCE (unrecogn ized section and content) DATE CREATED AUTHOR 10/20/2023 [facility] ([place] DATE CREATED AUTHOR AUTHOR'S ORGANIZ ATION 02/13/2024 [facility] FOR RECORDS PERTAINING TO PATIENTS WHO ARE OR HAVE BEEN ENROLLED IN A CHEMICAL DEPENDENCY/SUBSTANCEABUSE PROGRAM, SOME INFORMATION MAY BE OMITTED. This clinical summary was aggregated from multiple sources. Caution should be exercised in using it in the provision of clinical care. This summary normalizes information from multiple sources, and as a consequence, information in this document may materially change the coding, format and clinical context of patient data. In addition, data may be omitted in some cases. CLINICAL DECISIONS SHOULD BE BASED ON THE PRIMARY CLINICAL RECORDS. [employer] [facility]. provides no warranty or guarantee of the accuracy or completeness of information in this document.
== END | disposition home or self-care (01) ==
LOC: CT 08:43
PROVIDERS: PCP Family Medicine; Referring Provider Family Medicine; Visit Provider Family Medicine
DX: Z12.2 Encounter for screening for malignant neoplasm of respiratory organs (principal); F17.210 Nicotine dependence, cigarettes, uncomplicated
CPT/HCPCS: 71271

== ENCOUNTER → 2025-05-20 | Outpatient (CLI) | payer MEDICARE, SELFPAY ==
--- NOTE | 2025-05-20 13:48 | BD_ITS ---
PROCEDURE: DEXA BONE DENSITY STUDY 05/20/2025 REASON FOR EXAM: F, age 64 y/o . Postmenopausal. TECHNIQUE: Procedure Code: BDDBD Modality: DX Procedure: DEXA BONE DENSITY STUDY COMPARISON: December 01, 2020. FINDINGS: BMD and T-SCORES Lumbar spine: 1.295 g/cm2, T-score 2.9 Levels: L1 through L4 Change from prior: Improvement of 4.5%. Left femoral neck: 0.734 g/cm2, T-score -1.0 Femoral neck comparison data not recommended for monitoring change. Left total hip: 0.963 g/cm2, T-score 0.2 Change from prior: Loss of 4.2%. Right femoral neck: 0.704 g/cm2, T-score -1.3 Femoral neck comparison data not recommended for monitoring change. Right total hip: 0.861 g/cm2, T-score -0.7 Change from prior: Improvement of 3.7%. The World Health Organization has defined the following categories based on bone density: Normal bone density: T-score equal to or greater than -1.0 Osteopenia: T-score between -1.0 and -2.5 Osteoporosis: T-score equal to or less than -2.5 FRAX (or Comparable) Fracture Risk Assessment: 10 Year Probability of Fracture: Major Osteoporotic Fracture: 24% Hip Fracture: 2.6% (Note: FRAX is not to be reported in setting of normal range bone density, osteoporosis on DEXA, known history of osteoporosis, prior osteoporotic hip or vertebral fracture, or for any patient undergoing pharmacological treatment for bone loss.) The National Osteoporosis Foundation (NOF) recommends pharmacological treatment for patients with a FRAX 10-year risk of 3% or higher for a hip fracture, or 20% or higher for a major osteoporotic fracture, to prevent osteoporosis and reduce fracture risk. The patient does meet the pharmacological treatment recommendations for prevention of osteoporosis. BD/Dexa Bone Density Study IMPRESSION: OSTEOPENIA. Recommend follow-up as clinically warranted. Reading Location: [place] [id number]
--- NOTE | 2025-05-20 14:30 | BI_ITS ---
EXAM: SCRN MAMM (CAD)W/BRADLY BILAT DATE: 05/20/2025 CLINICAL HISTORY: F, Age 64 y/o , SCREENING TECHNIQUE: Procedure Code: BISMWCADBTOM Modality: MG Procedure: SCRN MAMM (CAD)W/BRADLY BILAT COMPARISON: Prior exam(s) were compared FINDINGS: TISSUE DENSITY: There are scattered areas of fibroglandular density. Bilateral Breast Mammographic Findings: No significant masses, calcifications or other abnormalities are identified. BI/SCRN MAMM (CAD)W/BRADLY BILAT IMPRESSION: No mammographic evidence of malignancy. OVERALL FINAL ASSESSMENT BI-RADS 1: NEGATIVE. RECOMMENDATION: Routine annual follow-up in 1 Year Additional Recommendation none A letter with findings and recommendations will be mailed to the patient. Reading Location: [id number]
== END | disposition home or self-care (01) ==
LOC: OPBD 13:41
PROVIDERS: PCP Family Medicine; Referring Provider Family Medicine; Visit Provider Family Medicine
DX: Z12.31 Encounter for screening mammogram for malignant neoplasm of breast (principal); Z78.0 Asymptomatic menopausal state
CPT/HCPCS: 77063; 77067; 77080

== ENCOUNTER → 2025-05-22 | Outpatient (CLI) | payer MEDICARE, SELFPAY ==
[2025-05-22 13:00] LABS: Vitamin D,25 Hydroxy 29.1 ng/mL (30-100)
== END | disposition home or self-care (01) ==
LOC: MFPLAB 09:38
PROVIDERS: PCP Family Medicine; Visit Provider Family Medicine
DX: R73.09 Other abnormal glucose (principal)
CPT/HCPCS: 36415; 82306